=== PATIENT | female | born 1970 | race African-American/Black ===

== ENCOUNTER 2019-03-24 14:35 | Inpatient (IN) | payer SELFPAY ==
[2019-03-24 14:48] VITALS: BMI 43.5
--- NOTE | 2019-03-24 14:56 | PDOC ---
History of Present Illness - General Chief Complaint: Syncope/Near Syncope Stated Complaint: Nausea/Vomiting Time Seen by Provider: 03/24/19 14:54 Past History - Past Medical History Allergies/Adverse Reactions: Allergies Allergy/AdvReac Type Severity Reaction Status Date / Time No Known Allergies Allergy Verified 03/24/19 14:43 Home Medications: Ambulatory Orders Bupropion HCl [Bupropion Xl] 150 mg PO DAILY 03/24/19 Hydrochlorothiazide [Hctz -] 25 mg PO DAILY 03/24/19 Losartan Potassium 100 mg PO DAILY 03/24/19 Sulfamethoxazole/Trimethoprim [Bactrim Ds -] 1 tab PO BID 03/24/19 Sumatriptan Succinate 100 mg PO PRN 03/24/19 Venlafaxine HCl ER [Effexor Xr -] 150 mg PO DAILY 03/24/19 Anemia: Yes COPD: No HTN: Yes Psychiatric Problems: Yes (anxiety) Other medical history: Fibroids - Suicide/Smoking/Psychosocial Hx Smoking History: Never smoked Have you smoked in the past 12 months: No Information on smoking cessation initiated: No Hx Alcohol Use: No Drug/Substance Use Hx: No *Physical Exam - Vital Signs Last Vital Signs Temp Pulse Resp BP Pulse Ox 98.4 F 97 H 18 139/71 95 03/24/19 14:44 03/24/19 14:44 03/24/19 14:44 03/24/19 14:44 03/24/19 14:44 ED Treatment Course - LABORATORY CBC & Chemistry Diagram: 03/24/19 15:40 03/24/19 15:40 Medical Decision Making - Medical Decision Making HPI: 49 yo F with PMH of anemia, fibroids, HTN, migraines, herniated disc, anxiety, depression presenting after a syncopal episode. Patient was recently admitted to [facility] for pyelonephritis and was discharged one week ago on with an outpatient prescription for Bactrim which she has not yet finished. Patient presents today after suffering a syncopal episode. She was standing in the bathroom when she felt weak and dizzy and found herself on the ground. She yelled for her fiance who came to assist her. He planned to take her to the hospital but she was feeling unwell and decided to lay down for longer than he expected. The fiance decided to call EMS and the ambulance brought her to the ED for further evaluation. Patient reports weakness and dyspnea on exertion since she started a new job in December. Patient reports that she had a low hemoglobin of 5.6 while at [facility] but refused transfusion and was given one iron infusion before discharge. She is no longer a practicing [employer] but had refused transfusion for samaritan reasons. Patient was supposed to be scheduled for another iron infusion today. She has a history of anemia but had never been offered transfusion before last week. Endorses fever of 102 yesterday as well as chills. Reports that her urine appears orange. Last bowel movement was yesterday and was a normal formed brown stool without blood. No chest pain, dysuria, hematuria, or abdominal pain. PCP: none Neuro: Dr. Chan (in [place]) ROS: Constitutional: +fever, +chills HEENT: no throat pain, no dysphagia Cardiovascular: no chest pain, no palpitations Respiratory: no cough, no shortness of breath Gastrointestinal: no abdominal pain, +nausea, +vomiting, no diarrhea, no constipation Genitourinary: no dysuria, no hematuria Musculoskeletal: no myalgia, no arthralgia Skin: no rash, no itching Neurologic: no headache, no weakness PE: General: Awake, alert, and fully oriented, in no acute distress Head: No signs of trauma Eyes: EOMI, sclera anicteric ENT: Dry mucus membranes Neck: Normal ROM, supple Lungs: Lungs clear, Normal breath sounds Cardio: Regular rhythm, S1 and S2 present Abdomen: Soft, nontender. No guarding, no rebound, no masses. No CVA tenderness. Extremities: Normal range of motion, Distal pulses present, BLE tenderness upon palpation SKIN: Warm, Dry, normal turgor Neurologic: Cranial nerves II through XII intact. Normal speech, sensation, strength, coordination. Deferred gait exam Back: Tender to palpation in lumbar area, midline, no step-offs/deformities/ fluctuance; no overlying wound or lesion Rectal: The skin is without erythema or induration. No external hemorrhoids, fissures, skin tags, warts, or discharge. Sphincter tone normal. There are no masses palpated on digital exam. Stool is brown. ED Courses/MDM: DDX including but not limited to symptomatic anemia, vasovagal syncope, cardiogenic syncope, metabolic syncope, neurogenic syncope, postural syncope, UTI/Pyelonephritis Labs CT Head Ofirmev Fluids Zofran EKG: rate 90, QTc 425, NSR, isolated twi in lead III, no prior EKGs 03/24/19 14:56 CBC WBC 22.1 K/mm3 (4.0-10.0) H 03/24/19 15:40 RBC 3.89 M/mm3 (3.60-5.2) 03/24/19 15:40 Hgb 6.7 GM/dL (10.7-15.3) L* 03/24/19 15:40 Hct 22.8 % (32.4-45.2) L 03/24/19 15:40 MCV 58.6 fl (80-96) L 03/24/19 15:40 MCH 17.3 pg (25.7-33.7) L 03/24/19 15:40 MCHC 29.5 g/dl (32.0-36.0) L 03/24/19 15:40 RDW 23.2 % (11.6-15.6) H 03/24/19 15:40 Plt Count 595 K/MM3 (134-434) H 03/24/19 15:40 MPV 9.7 fl (7.5-11.1) 03/24/19 15:40 Absolute Neuts (auto) 12.6 K/mm3 (1.5-8.0) H 03/24/19 15:40 Neutrophils % 57.1 % (42.8-82.8) 03/24/19 15:40 Lymphocytes % 36.4 % (8-40) 03/24/19 15:40 Monocytes % 5.5 % (3.8-10.2) 03/24/19 15:40 Eosinophils % 0.8 % (0-4.5) 03/24/19 15:40 Basophils % 0.2 % (0-2.0) 03/24/19 15:40 Nucleated RBC % 0 % (0-0) 03/24/19 15:40 Leukocytosis. WBC=22.1 Anemia, Hgb=6.7 Electrolytes unremakable Normal BUN and Cr Tpn undetectable Patient at CT 03/24/19 17:09 Discussed at length the benefits and risks of blood transfusion for low hemoglobin. Patient amenable to blood transfusion at this time. Consent signed. CMP Sodium 136 mmol/L (136-145) 03/24/19 15:40 Potassium 4.9 mmol/L (3.5-5.1) 03/24/19 15:40 Chloride 105 mmol/L (98-107) 03/24/19 15:40 Carbon Dioxide 21 mmol/L (21-32) 03/24/19 15:40 Anion Gap 10 MMOL/L (8-16) 03/24/19 15:40 BUN 10.7 mg/dL (7-18) 03/24/19 15:40 Creatinine 1.1 mg/dL (0.55-1.3) 03/24/19 15:40 Est GFR (CKD-EPI)AfAm 69.24 03/24/19 15:40 Est GFR (CKD-EPI)NonAf 59.74 03/24/19 15:40 Random Glucose 85 mg/dL (74-106) 03/24/19 15:40 Calcium 8.8 mg/dL (8.5-10.1) 03/24/19 15:40 Total Bilirubin 4.8 mg/dL (0.2-1) H 03/24/19 15:40 AST 130 U/L (15-37) H 03/24/19 15:40 ALT 169 U/L (13-61) H 03/24/19 15:40 Alkaline Phosphatase 978 U/L (45-117) H 03/24/19 15:40 Troponin I < 0.02 ng/ml (0.00-0.05) 03/24/19 15:40 Total Protein 6.7 g/dl (6.4-8.2) 03/24/19 15:40 Albumin 2.6 g/dl (3.4-5.0) L 03/24/19 15:40 Tpn undetectable Electrolytes unremarkable TBili, AST, ALT, ALP elevated Unknown why patient has these abnormal lab values; abdomen is nontender. Patient still has her gallbladder. Decision made to obtain RUQ US to r/o gallbladder pathology Blood cultures, lipase ordered Pending UA. Patient is unable to give us a urine sample at this time. Zosyn ordered. FOBT negative No longer nauseous. Reporting less leg pain because she has been laying in bed. 03/24/19 18:39 CXR: "A single frontal portable projection of the chest at 4:42 PM is submitted. The heart size is within normal limits. The lung moreno are free of pulmonary infiltrates or pleural effusions. IMPRESSION: No acute disease. " CT Head: "Sequential axial images were obtained from the base of the skull to the vertex. There is no evidence of acute intracranial hemorrhage, mass lesions or infarctions. There is no evidence of fracture or acute bony pathology. IMPRESSION: Normal CT scan of the head with no evidence of acute intracranial pathology." 03/24/19 18:49 RUQ US: "Real time examination of the abdomen demonstrates the following: The gallbladder is somewhat contracted and thick-walled. It is free of calculi with no evidence of intra or extrahepatic biliary duct dilatation. The liver is normal in size. It is somewhat heterogeneous in texture with no intrahepatic masses seen. Hepatopedal flow is documented within the main portal vein. The pancreas is normal in size and texture with no pancreatic masses identified. There is no evidence of hydronephrosis or acute abnormalities of the right kidney. There is no evidence of AAA. The IVC is patent. IMPRESSION: Heterogeneous liver with no evidence of biliary ductal dilatation or acute pathology. " Plan for admission 03/24/19 20:[address] Drake who accepted patient for admission under Dr. Montana 03/24/19 20:23 UA with 1+ LE, +nitrite, 33 WBC, 8.1 bacteria *DC/Admit/Observation/Transfer Diagnosis at time of Disposition: Symptomatic anemia, Pyelonephritis - Discharge Dispostion Condition at time of disposition: Guarded Decision to Admit order: Yes - Referrals - Patient Instructions - Post Discharge Activity
[2019-03-24] MEDS ORDERED: SODIUM CHLORIDE 1,000 ML IV STA ×2 (15:34→18:56)
[2019-03-24] MEDS ORDERED: ACETAMINOPHEN 1000 MG/100 ML VIAL (NON FORMULARY) IVPB ONE (15:34)
[2019-03-24] MEDS ORDERED: ONDANSETRON 4 MG/2 ML VIAL IVPUSH ONE (15:34)
--- NOTE | 2019-03-24 15:53 | PDOC ---
Documentation entered by Wen Raygoza SCRIBE, acting as scribe for Jj Alcaraz MD. Jj Alcaraz MD: This documentation has been prepared by the Jaret rust Brenda, SCRIBE, under my direction and personally reviewed by me in its entirety. I confirm that the documentation accurately reflects all work, treatment, procedures, and medical decision making performed by me. Attending Attestation - Resident Resident Name: Leia Hood - ED Attending Attestation I have performed the following: I have examined & evaluated the patient, The case was reviewed & discussed with the resident, I agree w/resident's findings & plan, Exceptions are as noted - HPI HPI: 03/24/19 16:50 The patient is a 49 year old female (currently menopausal) , with a significant PMH of anemia, fibroid and anxiety, who presents to the emergency department with a syncopal episode. As per patient, she was in the bathroom this morning around 9:00am, at which time she began to feel weak and dizzy and then had a syncopal episode. She also endorses nausea with 1 episode of NBNB emesis. She also endorses feeling weak since December. As per patient, she was recently at [facility] for a UTI, and was found to have low hemoglobin but refused a blood transfusion due to christianity beliefs. The patient denies chest pain, shortness of breath. Denies fever, chills, diarrhea and constipation. Denies dysuria, frequency, urgency and hematuria. Denies any other symptoms. Allergies: NKA - Physicial Exam PE: 03/24/19 16:50 Vitals: Triage Vital signs reviewed General Appearance: no acute distress, well nourished well developed, Head: Atraumatic, normocephalic Eyes: Pupils equal reactive round, extraocular movement intact Neck: Supple;No Nuchal rigidity Chest Wall: Nontender Cardiac: Regular rate and rhythm, no murmurs, no rubs, no gallops, Lungs: Clear to auscultation bilateral, good air movement bilaterally, Extremities: Full range of motion to all extremities, no cyanosis, clubbing, or edema Skin: Warm and dry, no rashes or lesions, no petechiae Neuro: AOX3; Cranial Nerves 2-12 grossly intact, Strength intact to all extremities, Sensation intact to all extremities Psych: normal mood, normal affect - Medical Decision Making 03/24/19 16:05 History of Anemia recent treatment for pyelonephritis patient may require blood transfusion but has refused in the past secondary to christianity reasons Labs head CT pending Dr. Perez to follow up labs and reassess.
[2019-03-24] MEDS ORDERED: ONDANSETRON 4 MG/2 ML VIAL ONE (15:56)
[2019-03-24] MEDS ORDERED: ACETAMINOPHEN INJECTION 100 ML IVPB ONE (15:56)
--- NOTE | 2019-03-24 16:02 | EKG ---
Test Reason : Blood Pressure : / mmHG Vent. Rate : 090 BPM Atrial Rate : 090 BPM P-R Int : 134 ms QRS Dur : 082 ms QT Int : 348 ms P-R-T Axes : 026 008 009 degrees QTc Int : 425 ms NORMAL SINUS RHYTHM MINIMAL VOLTAGE CRITERIA FOR LVH, MAY BE NORMAL VARIANT CANNOT RULE OUT ANTERIOR INFARCT , AGE UNDETERMINED ABNORMAL ECG NO PREVIOUS ECGS AVAILABLE Confirmed by MEAGAN HASSAN MD ([id number]) on 03/24/2019 4:01:45 PM Referred By: Confirmed By:MEAGAN HASSAN MD
[2019-03-24 16:22] LABS: BASO % 0.2 % (0-2.0); EOS % 0.8 % (0-4.5); HEMATOCRIT 22.8 % (32.4-45.2); LYMPH % 36.4 % (8-40); MCHC 29.5 g/dl (32.0-36.0); MEAN CELL VOLUME 58.6 fl (80-96); MEAN PLT VOLUME 9.7 fl (7.5-11.1); MONO % 5.5 % (3.8-10.2); NEUT % 57.1 % (42.8-82.8); PLATELET COUNT 595 K/MM3 (134-434); RBC 3.89 M/mm3 (3.60-5.2); RDW 23.2 % (11.6-15.6); WHITE BLOOD COUNT 22.1 K/mm3 (4.0-10.0)
[2019-03-24 16:32] LABS: INR 1.52 (0.83-1.09)
[2019-03-24] MEDS ORDERED: DIPHTH,PERTUSS(ACELL),TET 0.5 ML DISP.SYRIN IM ONE ×2 (16:32→18:22)
[2019-03-24 16:35] LABS: ACTIVATED PTT 43.9 SECONDS (25.2-36.5); MCH 17.3 pg (25.7-33.7)
[2019-03-24 16:36] LABS: HEMOGLOBIN 6.7 GM/dL (10.7-15.3)
[2019-03-24 16:41] LABS: ALBUMIN 2.6 g/dl (3.4-5.0); ALK PHOS 978 U/L (45-117); ANION GAP 10 MMOL/L (8-16); BILIRUBIN,TOTAL 4.8 mg/dL (0.2-1); BLOOD UREA NITROGEN 10.7 mg/dL (7-18); CALCIUM 8.8 mg/dL (8.5-10.1); CHLORIDE 105 mmol/L (98-107); CO2 21 mmol/L (21-32); CREATININE 1.1 mg/dL (0.55-1.3); GLUCOSE,RANDOM 85 mg/dL (74-106); POTASSIUM 4.9 mmol/L (3.5-5.1); SGOT/AST 130 U/L (15-37); SGPT/ALT 169 U/L (13-61); SODIUM 136 mmol/L (136-145); TOT PROT 6.7 g/dl (6.4-8.2)
[2019-03-24] MEDS ORDERED: PIPERACILLIN/TAZOB 4.5 GM 4.5 GM in DEXTROSE 5%-WATER 100 ML IVPB ONE (17:47)
[2019-03-24] MEDS ORDERED: PIPERACILLIN/TAZOB 4.5 GM 4.5 GM/100 ML BAG IVPB ONE (18:22)
[2019-03-24 19:22] LABS: ANISOCYTOSIS 3+; MACROCYTOSIS 2+
[2019-03-24 19:23] LABS: PLATELET ESTIMATE INCREASED
[2019-03-24 20:23] LABS: EPI CELLS 12.9 /HPF (0-5/HPF); HYALINE CASTS 57 /lpf (0-8); PH,URINE 5.5 (5.0-8.0); URINE APPEARANCE CLOUDY; URINE BACTERIA 8.1 /hpf (NEGATIVE); URINE BILIRUBIN 3+ (NEGATIVE); URINE COLOR DK YELLOW; URINE GLUCOSE (UA) NEGATIVE (NEGATIVE); URINE KETONE TRACE (NEGATIVE); URINE LEUK ESTERASE 1+ (NEGATIVE); URINE NITRITE POSITIVE (NEGATIVE); URINE PROTEIN 1+ (NEGATIVE); URINE RBC 2 /hpf (0-4); URINE WBC 33 /hpf (0-5)
--- NOTE | 2019-03-24 21:00 | HP ---
CHIEF COMPLAINT: Syncope PCP: Dr. Salas (neuro) HISTORY OF PRESENT ILLNESS: 49 F with PMH significant for anemia, fibroids, HTN who presents today with an unwitnessed syncopal event in the morning. Patient recalls ambulating to the restroom but becoming lightheaded and weak, at which point she braced herself against the wall. She has no recall of what happened next, she became unconscious and then remembers waking up on the floor and sitting herself up and then calling her fiance to help her. Fiance was in a different room during the episode and did not come into the room until being called so there is no reliable measure of time for LOC. She did not endorse feeling dizzy, and did not have any symptoms of incontinence upon regaining consciousness. Denies any trauma to her head, but she did feel as though she landed on her left side and had some scrapes on her elbow. Patient endorses feeling weak in her legs and nausea today, had 1 episode of NBNB emesis in the morning. She also reports 1 episode of emesis on Thursday night, which was NBNB, and afterwards has had decreased oral intake, mostly consisting of small pieces of fruit and water. She does not have abdominal pain, diarrhea, dysuria, hematuria, or blood in the stool. Notably patient endorses feeling weak since recent discharge from [facility] after treatment for pyelonephritis, on Bactrim BID. Patient endorses taking her home meds as scheduled except for her blood pressure medications since she has not felt well recently. She endorses having recorded fevers at home ranging from 99-104. She endorses exertional dyspena after walking 1 block starting in December, currently she ambulates at home from room to room with some dyspnea and needs to hold onto the wall or side railings in order to stay balanced and not fall. She denies any numbness in her lower extremity. Denies any trauma with lacerations or bloodloss, hematochezia, hematuria, hemoptysis. ER course was notable for: (1)Chest X-Ray was completed which was clear. RUQ U/S was done which showed normal liver and no gallbladder pathology. Head CT showed no bleeds or acute pathology. 1 unit PRBC was given once CBC showed Hgb of 6.7 (2)U/A was done which showed 8.1 bacteria, 1+ leukocyte esterase, 3+ bilirubin, trace ketones. Zoysn 4.5 grams was given. (3)2L NS was given. Recent Travel: None PAST MEDICAL HISTORY: anemia, fibroids, HTN, migraines, herniated disc, anxiety , depression LMP: was 1 year ago. [employer] said she was premenopausal. 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 Works outside frequently but has not returned to work since [facility] admission. Is a Yazdanism but is amenable to blood transfusion today. Family History: HTN, Ulcers, anemia, breast cancer on both sides of family. COPD in father. Allergies No Known Allergies Allergy (Verified 03/24/19 14:43) HOME MEDICATIONS: Buproprion 150 mg QD HCTZ 25 mg QD Iron tablet 3x daily Losartan 100 mg QHS Bactrim BID venlafaxine 150 mg QDaily Sumatriptan 100 mg PRN REVIEW OF SYSTEMS In addition to above CONSTITUTIONAL: Subjective fever, generalized weakness, loss of appetite Absent: chills, diaphoresis, malaise, weight change HEENT: Absent: rhinorrhea, nasal congestion, throat pain, throat swelling, difficulty swallowing, mouth swelling, ear pain, eye pain, visual changes CARDIOVASCULAR: Lightheadedness Absent: chest pain, syncope, palpitations, irregular heart rate, peripheral edema RESPIRATORY: dyspnea with exertion Absent: cough, shortness of breath, orthopnea, wheezing, stridor, hemoptysis GASTROINTESTINAL:nausea, vomiting, Absent: abdominal pain, abdominal distension, diarrhea, constipation, melena, hematochezia GENITOURINARY: Absent: dysuria, frequency, urgency, hesitancy, hematuria, MUSCULOSKELETAL: Absent: myalgia, arthralgia, joint swelling, back pain, neck pain HEMATOLOGIC/IMMUNOLOGIC: Absent: easy bleeding, easy bruising, lymphadenopathy ENDOCRINE: Absent: unexplained weight gain, unexplained weight loss, heat intolerance, cold intolerance NEUROLOGIC: Absent: headache, dizziness, unsteady gait, seizure, mental status changes, bladder or bowel incontinence PSYCHIATRIC: Absent: anxiety, depression, suicidal or homicidal ideation, hallucinations. PHYSICAL EXAMINATION Vital Signs - 24 hr 03/24/19 03/24/19 03/24/19 14:44 18:00 19:34 Temperature 98.4 F Pulse Rate 97 H Pulse Rate [ 93 H Apical] Respiratory 18 16 Rate Blood Pressure 139/71 Blood Pressure 105/64 [Right] O2 Sat by Pulse 95 98 97 Oximetry (%) GENERAL: Awake, alert, and fully oriented, in no acute distress. HEAD: Normal with no signs of trauma. EYES: Pupils equal, round and reactive to light, extraocular movements intact, sclera anicteric, conjunctiva clear. No lid lag. EARS, NOSE, THROAT: Ears normal, nares patent, oropharynx clear without exudates. Moist mucous membranes. NECK: Normal range of motion, supple without lymphadenopathy, JVD, or masses. LUNGS: Breath sounds equal, clear to auscultation b/l No wheezes, and no crackles. No accessory muscle use. HEART: Regular rate and rhythm, normal S1 and S2 without murmur, rub or gallop. ABDOMEN: Soft, nontender, not distended, normoactive bowel sounds, no guarding, no rebound, no masses. MUSCULOSKELETAL: No CVA tenderness b/l UPPER EXTREMITIES: 2+ pulses, warm, well-perfused. No cyanosis. No clubbing. No peripheral edema. LOWER EXTREMITIES: 2+ pulses, warm, well-perfused. No calf tenderness. No peripheral edema. NEUROLOGICAL: Cranial nerves II-XII intact. Normal speech. Normal gait. SKIN: Warm, dry, normal turgor, no rashes or lesions noted, normal capillary refill. Laboratory Results - last 24 hr 03/24/19 03/24/19 03/24/19 15:40 15:40 15:40 WBC 22.1 H RBC 3.89 Hgb 6.7 L* Hct 22.8 L MCV 58.6 L MCH 17.3 L MCHC 29.5 L RDW 23.2 H Plt Count 595 H MPV 9.7 Absolute Neuts (auto) 12.6 H Neutrophils % 57.1 Neutrophils % (Manual) 80.0 Lymphocytes % 36.4 Lymphocytes % (Manual) 15.0 Monocytes % 5.5 Monocytes % (Manual) 5 Eosinophils % 0.8 Basophils % 0.2 Nucleated RBC % 0 Hypochromia 3+ Platelet Estimate Increased Platelet Comment No clumping noted Anisocytosis 3+ Microcytosis 1+ Macrocytosis 2+ PT with INR INR PTT (Actin FS) Sodium 136 Potassium 4.9 Chloride 105 Carbon Dioxide 21 Anion Gap 10 BUN 10.7 Creatinine 1.1 Est GFR (CKD-EPI)AfAm 69.24 Est GFR (CKD-EPI)NonAf 59.74 Random Glucose 85 Calcium 8.8 Total Bilirubin 4.8 H AST 130 H ALT 169 H Alkaline Phosphatase 978 H Troponin I < 0.02 Total Protein 6.7 Albumin 2.6 L Lipase Urine Color Urine Appearance Urine pH Ur Specific Haigler Urine Protein Urine Glucose (UA) Urine Ketones Urine Blood Urine Nitrite Urine Bilirubin Urine Urobilinogen Ur Leukocyte Esterase Urine WBC (Auto) Urine RBC (Auto) Urine Casts (Auto) U Epithel Cells (Auto) Urine Bacteria (Auto) Urine HCG, Qual Negative Stool Occult Blood Blood Type Antibody Screen Crossmatch 03/24/19 03/24/19 03/24/19 15:40 15:40 16:25 WBC RBC Hgb Hct MCV MCH MCHC RDW Plt Count MPV Absolute Neuts (auto) Neutrophils % Neutrophils % (Manual) Lymphocytes % Lymphocytes % (Manual) Monocytes % Monocytes % (Manual) Eosinophils % Basophils % Nucleated RBC % Hypochromia Platelet Estimate Platelet Comment Anisocytosis Microcytosis Macrocytosis PT with INR 18.00 H INR 1.52 H PTT (Actin FS) 43.9 H Sodium Potassium Chloride Carbon Dioxide Anion Gap BUN Creatinine Est GFR (CKD-EPI)AfAm Est GFR (CKD-EPI)NonAf Random Glucose Calcium Total Bilirubin AST ALT Alkaline Phosphatase Troponin I Total Protein Albumin Lipase Urine Color Urine Appearance Urine pH Ur Specific Haigler Urine Protein Urine Glucose (UA) Urine Ketones Urine Blood Urine Nitrite Urine Bilirubin Urine Urobilinogen Ur Leukocyte Esterase Urine WBC (Auto) Urine RBC (Auto) Urine Casts (Auto) U Epithel Cells (Auto) Urine Bacteria (Auto) Urine HCG, Qual Stool Occult Blood Negative Blood Type A POSITIVE Antibody Screen Negative Crossmatch See Detail 03/24/19 03/24/19 03/24/19 18:00 18:00 18:30 WBC RBC Hgb Hct MCV MCH MCHC RDW Plt Count MPV Absolute Neuts (auto) Neutrophils % Neutrophils % (Manual) Lymphocytes % Lymphocytes % (Manual) Monocytes % Monocytes % (Manual) Eosinophils % Basophils % Nucleated RBC % Hypochromia Platelet Estimate Platelet Comment Anisocytosis Microcytosis Macrocytosis PT with INR INR PTT (Actin FS) Sodium Potassium Chloride Carbon Dioxide Anion Gap BUN Creatinine Est GFR (CKD-EPI)AfAm Est GFR (CKD-EPI)NonAf Random Glucose Calcium Total Bilirubin AST ALT Alkaline Phosphatase Troponin I Total Protein Albumin Lipase 204 Urine Color Urine Appearance Urine pH Ur Specific Haigler Urine Protein Urine Glucose (UA) Urine Ketones Urine Blood Urine Nitrite Urine Bilirubin Urine Urobilinogen Ur Leukocyte Esterase Urine WBC (Auto) Urine RBC (Auto) Urine Casts (Auto) U Epithel Cells (Auto) Urine Bacteria (Auto) Urine HCG, Qual Stool Occult Blood Blood Type Cancelled A POSITIVE Antibody Screen Cancelled Crossmatch 03/24/19 19:41 WBC RBC Hgb Hct MCV MCH MCHC RDW Plt Count MPV Absolute Neuts (auto) Neutrophils % Neutrophils % (Manual) Lymphocytes % Lymphocytes % (Manual) Monocytes % Monocytes % (Manual) Eosinophils % Basophils % Nucleated RBC % Hypochromia Platelet Estimate Platelet Comment Anisocytosis Microcytosis Macrocytosis PT with INR INR PTT (Actin FS) Sodium Potassium Chloride Carbon Dioxide Anion Gap BUN Creatinine Est GFR (CKD-EPI)AfAm Est GFR (CKD-EPI)NonAf Random Glucose Calcium Total Bilirubin AST ALT Alkaline Phosphatase Troponin I Total Protein Albumin Lipase Urine Color Dk yellow Urine Appearance Cloudy Urine pH 5.5 Ur Specific Haigler 1.031 Urine Protein 1+ H Urine Glucose (UA) Negative Urine Ketones Trace H Urine Blood Negative Urine Nitrite Positive H Urine Bilirubin 3+ H Urine Urobilinogen 1.0 Ur Leukocyte Esterase 1+ H Urine WBC (Auto) 33 Urine RBC (Auto) 2 Urine Casts (Auto) 57 U Epithel Cells (Auto) 12.9 Urine Bacteria (Auto) 8.1 Urine HCG, Qual Stool Occult Blood Blood Type Antibody Screen Crossmatch ASSESSMENT/PLAN: 49 F with PMH of anemia, fibroids, HTN, migraines who presents today with syncope secondary to worsening anemia. Patient also presents with transaminitis and likely unresolved urinary tract infection. 1) Syncope secondary to anemia Patient claims anemia is chronic condition, but has never been told her Hgb / Hct levels. Is amenable to blood transfusion today. Anemia would best explain exertional dyspnea, weakness, and today's syncopal event. Emesis may be due to iron tablets she has started to take. -1 unit PRBC transfused, goal->7 -Follow up CBC @ 1:30AM -Anemia possibly caused by hx of fibroids, pelvic ultrasound ordered to evaluate -Orthostatic vitals to be done -Echo to rule out cardiogenic cause of syncope such as aortic stenosis -Anemia work up: ferritin, iron studies, red blood cell smear. 2)Leukocytosis, possibly due to unresolved UTI -Blood culture and urine culture pending -Zoysn 4.5 gm given -1 gram ceftriaxone QDaily -Follow CBC -NS @ 75 ml/hr 3)Transaminitis No baseline labs available to compare patient's elevated LFT's, Alkaline Phosphatase to. May be due to Bactrim, which has hepatotoxicity. Will hold patient's bactrim -Obtain Medical Records from [facility] admission -Hepatitis levels -Tylenol levels -Potential GI consult in AM pending records from [facility] 4) Hx of migraines -Sumatriptan 100 mg PO PRN 5)Hx of Nausea -Zofran PRN 4mg IV 6)Hx of Depression and anxiety Bupropion 150 mg PO Qdaily Venlafaxine 150 mg PO Qdaily F: NS @ 75 ml/hr E: Follow BMP N: Sodium Controlled Diet DVT prophylaxis: SCD's Dispo: Admit to medicine floors Problem List - Problem (1) Pyelonephritis Code(s): N12 - TUBULO-INTERSTITIAL NEPHRITIS, NOT SPCF ACUTE OR CHRONIC (2) Symptomatic anemia Code(s): D64.9 - ANEMIA, UNSPECIFIED Visit type - Emergency Visit Emergency Visit: Yes ED Registration Date: 03/24/19 Care time: The patient presented to the Emergency Department on the above date and was hospitalized for further evaluation of their emergent condition. - New Patient This patient is new to me today: Yes Date on this admission: 03/24/19 - Critical Care Critical Care patient: No ATTENDING PHYSICIAN STATEMENT I saw and evaluated the patient. I reviewed the resident's note and discussed the case with the resident. I agree with the resident's findings and plan as documented. SUBJECTIVE: OBJECTIVE: ASSESSMENT AND PLAN:
[2019-03-24] MEDS ORDERED: ONDANSETRON 4 MG/2 ML VIAL IVPUSH PRN (21:06)
--- NOTE | 2019-03-25 00:16 | PN ---
Teaching Attending Note Name of Resident: Odell Cortez ATTENDING PHYSICIAN STATEMENT I saw and evaluated the patient. chart, data, imaging reviewed. I reviewed the resident's note and discussed the case with the resident. I agree with the resident's findings and plan as documented. SUBJECTIVE: 49 year old female with a significant PMH of anemia, fibroids, anxiety, and migraines c/o unwitnessed syncope episode. Lasted a few seconds to minutes. Undergoing treatment for pylonephritis with tmp/smx. OBJECTIVE: Last Vital Signs Temp Pulse Resp BP Pulse Ox 99.0 F 85 19 98/62 97 03/24/19 21:45 03/24/19 21:45 03/24/19 21:45 03/24/19 21:45 03/24/19 21:45 gen- nad, nontoxic, obese heent- at, nc, scleral pallor cv -s1+s2+rrr chest - clear abd - obese, nontender ext- no pedal edema studies reviewed - head ct neg for acute insults ASSESSMENT AND PLAN: #Syncope- from underlying anemia - ekg nsr -transfuse prbc -bed rest -fall precautions -echo #Microcytic anemia- likely from underlying fibroids. Pt JW but willing to accept blood transfusion. -iron studies -ferritin -vit b12 level -transfuse blood , hgb goal >7mg/dl #Transaminitis acute liver injury vs chronic ?- possibly drug induced liver injury form tmp/smx. No evidence of cholestasis. -obtain baseline liver studies -tylenol level -etoh level -viral hepatis panel -urine tox -GI consult -avoid hepatotoxins - bactrim #Pyelonephritis -complete course with ceftriaxone dvt ppx -
[2019-03-25 00:42] LABS: HEMATOCRIT 23.7 % (32.4-45.2); MCHC 29.3 g/dl (32.0-36.0); MEAN CELL VOLUME 60.6 fl (80-96); MEAN PLT VOLUME 9.9 fl (7.5-11.1); PLATELET COUNT 607 K/MM3 (134-434); RBC 3.91 M/mm3 (3.60-5.2); RDW 24.9 % (11.6-15.6); WHITE BLOOD COUNT 18.3 K/mm3 (4.0-10.0)
[2019-03-25 01:10] LABS: MCH 17.8 pg (25.7-33.7)
[2019-03-25 01:13] LABS: IRON SERUM 28 ug/dL (50-175); TOTAL IRON BINDING CAPACITY 237 ug/dL (250-450)
[2019-03-25] MEDS ORDERED: PATIENT'S OWN MEDICATION (NON-FORMULARY) (Sumatriptan Succinate [Sumatriptan Succinate] 10 PO SCH (01:15)
[2019-03-25] MEDS: SUMAtriptan SUCCINATE 50 MG TABLET PO PRN ×2 (01:53→07:56)
[2019-03-25] MEDS: SODIUM CHLORIDE 1,000 ML IV SCH ×4 (01:54→20:54)
[2019-03-25] MEDS ORDERED: PT OWN MED DRAWER 7, Y5N ONE ×3 (02:07→08:50)
[2019-03-25 02:35] LABS: BASO % 0.4 % (0-2.0); EOS % 1.5 % (0-4.5); HEMATOCRIT 26.7 % (32.4-45.2); LYMPH % 52.3 % (8-40); MCHC 29.9 g/dl (32.0-36.0); MEAN CELL VOLUME 62.6 fl (80-96); MEAN PLT VOLUME 9.1 fl (7.5-11.1); MONO % 4.2 % (3.8-10.2); NEUT % 41.6 % (42.8-82.8); PLATELET COUNT 603 K/MM3 (134-434); RBC 4.26 M/mm3 (3.60-5.2); RDW 26.7 % (11.6-15.6); WHITE BLOOD COUNT 19.5 K/mm3 (4.0-10.0)
[2019-03-25 02:41] LABS: MCH 18.7 pg (25.7-33.7)
[2019-03-25 04:46] LABS: ANISOCYTOSIS 2+; PLATELET ESTIMATE INCREASED; TARGET CELLS 1+
[2019-03-25] MEDS ORDERED: ACETAMINOPHEN 325 MG TABLET (FP) PO PRN ×2 (08:00→15:28)
[2019-03-25 08:07] LABS: HEMATOCRIT 25.6 % (32.4-45.2); HEMOGLOBIN 7.7 GM/dL (10.7-15.3); MEAN CELL VOLUME 61.7 fl (80-96); MEAN PLT VOLUME 9.4 fl (7.5-11.1); PLATELET COUNT 641 K/MM3 (134-434); RBC 4.14 M/mm3 (3.60-5.2); RDW 26.8 % (11.6-15.6); WHITE BLOOD COUNT 20.4 K/mm3 (4.0-10.0)
[2019-03-25 08:14] LABS: INR 1.58 (0.83-1.09); PROTHROMBIN TIME (PATIENT) 18.7 SEC (9.7-13.0)
[2019-03-25 08:16] LABS: ALBUMIN 2.5 g/dl (3.4-5.0); BILIRUBIN,TOTAL 6.8 mg/dL (0.2-1); BLOOD UREA NITROGEN 9.6 mg/dL (7-18); CALCIUM 9.1 mg/dL (8.5-10.1); CREATININE 1.1 mg/dL (0.55-1.3); MAGNESIUM 2.4 mg/dL (1.8-2.4); TOT PROT 6.6 g/dl (6.4-8.2)
[2019-03-25 08:17] LABS: ACTIVATED PTT 38.7 SECONDS (25.2-36.5)
[2019-03-25 08:36] LABS: MCH 18.5 pg (25.7-33.7)
[2019-03-25] MEDS ORDERED: cefTRIAXone SODIUM 1 GM VIAL ONE (08:50)
[2019-03-25] MEDS ORDERED: DEXTROSE 5%-WATER - 50 ML IVPB ONE (08:51)
[2019-03-25 09:47] LABS: BILIRUBIN,DIRECT 5.9 mg/dL (0.0-0.2)
[2019-03-25] MEDS ORDERED: CEFTRIAXONE 1 GM in DEXTROSE 5%-WATER - 50 ML IVPB SCH (10:00)
[2019-03-25] MEDS ORDERED: HYDROCHLOROTHIAZIDE 25 MG TABLET (FP) PO SCH (10:00)
[2019-03-25] MEDS: VENLAFAXINE HCL 75 MG E.R. CAPSULES (FP) PO SCH (10:38)
[2019-03-25 11:17] LABS: ANISOCYTOSIS 2+; MACROCYTOSIS 0; OVALOCYTE 1+; PLATELET ESTIMATE INCREASED; TARGET CELLS 1+; TEAR DROP CELLS 1+
[2019-03-25] MEDS ORDERED: PIPERACILLIN/TAZOB 4.5 GM 4.5 GM in DEXTROSE 5%-WATER 100 ML IVPB ONE (15:20)
--- NOTE | 2019-03-25 15:33 | PN ---
Teaching Attending Note Name of Resident: Deepa Villalobos ATTENDING PHYSICIAN STATEMENT I saw and evaluated the patient. I reviewed the resident's note and discussed the case with the resident. I agree with the resident's findings and plan as documented. SUBJECTIVE: feels tiered, generalized aches. RAMOS earlier npw resolved. reports having Migraines and the RAMOS was NL. reports iron def anemia . on iron supp. she was diagnosed with anemia even before her first period. she has not had a period x 1 year. ramos sh/o fibroids no colonoscopy in past or EGD, no h/o GI bleed . no high risk sexual behaviour. ative with her fiance x 2 yrs. no h/o IV drug use of previous blood transfusion per her Hb was 5.5 in [facility]. Reports a murmur OBJECTIVE: NAD, looks ill. awake and oriented HEENT: dry MM, no facial droop. EOMI. icteric conjunctivae. jaundiced skin CV: RRR, 3/6 SM at LLSB and base . Lungs: CTAB Abd: soft, NT, ND ,NL BS. Rectal exam: done by resident. neuro: EOMI, round equal pupils , reactive to light , no neck rigidity, no facil droop. EOMi, strength 5/5 in upper extremities proximally and distally. has pain in LE and does not want t participate. sensation to light touch NL. reflexes 2+ biceps and triceps ASSESSMENT AND PLAN: 49 y/o lady with h/o chronic iron def anemia, fibroids, no h/o transfusion, anxiety , depression, migraines, recent hospitalization to [facility] with a diagnosis of pyelonephritis and bacteremia. She presented with syncope 1- Syncope: likely due to orthostasis and anemia . EKG reviewed. will repeat and repeat trop. echo . evaluate murmur 2- Sepsis: either due to urinary source or GI biliary source. - she reports being bacteremic in [facility] form Pyelonephritis. never became fever free after her dc a week ago. - LFTS abnormalities indicate mixed picture and could be due to bactrim use, but need to r/o cholangitis ( no RUQ pain though) - suspect patient is bacteremic - US reviewed - follow blood cx - MRCP - GI consult . resident will call GI - consult ID. case was d/w Dr. Cornell and recs to start cefepime and flagyl - R/o renal abscess 3- Microcytic anemia: chronic , she reports Hb of 5.5 in [facility] . did not receive transfusion as she refused. now agrees - all her sisters have anemia. No h/o GI bleed. No bleed x 1 yr. - check hb electropheresis - check LDH , Hapto - OB in stool negative - transfuse if Hb < 7 - iron studies can't be interpreted after blood transfusion 4- Transaminitis: could be due to bactrim x 8 days now. r/o cholangitis ( less likely as no RUQ tenderness, and no CBd dilation on US, but still does not r/o diagnosis). spesis might be contributing - MRCP. - hepatitis serology pending - Gi consult 5- Migraines. resolve dnow. 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 6- SCds for now .pendig above w/u Will obrain records form [facility].
[2019-03-25] MEDS ORDERED: CEFEPIME HCL/D5W 2 GM/50 ML BAG IVPB SCH (17:00)
[2019-03-25] MEDS ORDERED: ONDANSETRON 4 MG/2 ML VIAL IVPUSH ONE (17:28)
[2019-03-25] MEDS ORDERED: PROCHLORPERAZINE MALEATE 5 MG TABLET PO ONE (17:29)
--- NOTE | 2019-03-25 17:31 | CON.GI ---
Consult Consult Specialty:: GI Referred by:: Hospitalist Reason for Consultation:: Abnormal liver chemistries - History of Present Illness Chief Complaint: General malaise, weakness History of Present Illness: 49F admitted to [facility] 03/24 s/p syncope. She explains that she had recently been admitted to [facility] this past 03/13-03/17. She had initially been seen in their ER for evaluation of chills/fevers/body aches/headaches. She alludes to having blood work performed, being told of potential viral illness and sent home. She was then called by the ER to return to the hospital as she was noted to be bacteremic. She states being told of a urinary tract infection while admitted there and "something with her kidneys", was given IV Abx and discharged in Bactrim. She last took bactrim yesterday morning. Overall, she states feeling no better than during her admission at Health system if not worse. She feels weak. On admission, Hgb was 6.7, INR 1.52,AST: 130 ALT: 169 ALP 978 TB :4.8. This morning her bilirubin is 6.8 with ALP: 885. Abdominal US yesterday failed to reveal gallstones, dilated biliary tract or focal liver abnormalities. She denies personal or family history of liver disease, OTC medications aside from excedrein, herbal supplements, IVDA or change in her prior standing medications. She does not recall being told of abnormal liver studies while at [facility]. Her father had a history of thyroid disease. In terms of her anemia, she states of having been anemic "her whole life" and has been on iron intermittently for this. She has had episodes of nausea with vomiting yesterday. She denies abdominal pain, rectal bleeding, melena, change in bowel habits, change in stool caliber, pruritus, rashes. SHe was noted guaiac negative from stool specimen sent to lab. She has never had an upper endoscopy or colonoscopy. There is no family history of colorectal cancer or other GI malignancy. There is no family history of celiac disease. Some of her siblings have a history of anemia as well. She continues to have low grade temps. Reports from [facility] have not been obtained for review as of yet. 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 History of Recent Travel: No Home Medications - Allergies Allergies/Adverse Reactions: Allergies Allergy/AdvReac Type Severity Reaction Status Date / Time No Known Allergies Allergy Verified 03/24/19 14:43 - Home Medications Home Medications: Ambulatory Orders Bupropion HCl [Bupropion Xl] 150 mg PO DAILY 03/24/19 Hydrochlorothiazide [Hctz -] 25 mg PO DAILY 03/24/19 Losartan Potassium 100 mg PO DAILY 03/24/19 Sulfamethoxazole/Trimethoprim [Bactrim Ds -] 1 tab PO BID 03/24/19 Sumatriptan Succinate 100 mg PO PRN 03/24/19 Venlafaxine HCl ER [Effexor Xr -] 150 mg PO DAILY 03/24/19 Family Disease History - Family Disease History Family Disease History: Other: Father (: 68: COPD / respiratory issues), Mother (Alive: HTN), Brother (1), Sister (4) Other Family History: No children. Some family members with anemia / HTN. No family history of colorectal cancer or other GI malignancy Review of Systems - Review of Systems Constitutional: reports: Chills, Fever, Loss of Appetite, Weakness Cardiovascular: denies: Chest Pain Respiratory: denies: Cough, SOB Gastrointestinal: reports: Bloating, Nausea, Vomiting. denies: Abdominal Pain, Constipation, Diarrhea, Dysphagia, Indigestion, Melena, Rectal Bleeding, Vomiting Blood Genitourinary: denies: Burning, Discharge, Dysuria, Flank Pain Musculoskeletal: reports: Extremity Pain (bilateral LE), Joint Pain. denies: Back Pain Psychiatric: reports: Anxiety Physical Exam-GI Vital Signs: Vital Signs Temperature 98.8 F 03/25/19 14:06 Pulse Rate 81 03/25/19 14:06 Respiratory Rate 20 03/25/19 14:06 Blood Pressure 108/68 03/25/19 14:06 O2 Sat by Pulse Oximetry (%) 100 03/25/19 07:30 Constitutional: Yes: Calm Eyes: Yes: Sclera Icterus Cardiovascular: Yes: Regular Rate and Rhythm, Murmur (2/6 SIERRA at the RSB) Respiratory: Yes: CTA Bilaterally Gastrointestinal Inspection: No: Distention, Scars ...Auscultate: Yes: Normoactive Bowel Sounds ...Palpate: Yes: Soft. No: Hepatomegaly, Splenomegaly, Tenderness ...Percussion: No: Tympanitic Extremities: Yes: Other (TTP along bilateral LE) Edema: LLE: Trace, RLE: Trace Neurological: Yes: Alert, Oriented (x3). No: [facility]ix[facility] Labs: CBC, BMP 03/25/19 06:30 03/25/19 06:30 INR, PTT INR 1.58 (0.83-1.09) H 03/25/19 06:30 Laboratory Tests 03/25/19 00:15 Iron 28 L TIBC 237 L Iron Saturation 11 L Ferritin 215.0 Laboratory Tests 03/25/19 00:15 Hep A IgM Ab Confirm Pending Hepatitis A Ab Total Pending Hep Bs Antigen Pending Hep Bs Antibody Pending Hep B Core Total Ab Pending Hep B Core IgM Ab Pending Hepatitis Be Antibody Pending Hepatitis Be Antigen Pending Microbiology Blood culture x 2 and urine cx from 03/24/19 Pending Laboratory Tests 03/25/19 00:15 Acetaminophen < 2.0 L Imaging - Results Cat Scan: Image Reviewed (Not officially read as of yet: I reviewed images: ? enlarged heart, No obvious gross intrahepatic ductal dil., no inflammatory changes around gallbladder, ? enlarged right kidney with stranding around it.) Ultrasound: Report Reviewed Problem List - Problems (1) Abnormal liver function tests Assessment/Plan: Cholestatic liver injury pattern. Given that bactrim was recently intiated, suspect that this could be the offending agent leading to cholestatic hepatitis. With obstructive jaundice, I would expect some degree of biliary ductal dilatation with such marked elevations in ALP and bilirubin and associated RUQ pain in the setting of cholangitis. ? if the leukocytosis and fevers is coming from alternate source aside from biliary tract (pyelonephritis). Awaiting official CT scan results (as noted above no gross ductal dilatation noted on MRCP has been ordered and she is heading down shortly for the study Changed to clear liquid diet until further evaluation of biliary tract performed Hepatitis serologies are pending. I discontinued Acetaminophen. Avoid other hepatotoxic agents ID has been consulted this evening. Awaiting blood and urine cultures Monitor INR. I ordered the AM Labs (CBC/Hepatic panel/BMP/INR) Monitor mental status Low threshold to transfer patient to ICU for change in hemodynamics / mental status Code(s): R94.5 - ABNORMAL RESULTS OF LIVER FUNCTION STUDIES (2) Anemia Assessment/Plan: Likely mixed picture. low iron saturation however low TIBC as well. With significant microcytosis and chronic / familial history of anemia, ? thalassemia. ? myelosuppresion from sepsis / alternate etiology. ? component of hemolysis Consider heme evaluation / further work-up Ordered celiac panel EGD / Colonoscopy when acute issues have resolved Code(s): D64.9 - ANEMIA, UNSPECIFIED Qualifiers: Anemia type: unspecified type Qualified Code(s): D64.9 - Anemia, unspecified
[2019-03-25] MEDS ORDERED: CEFEPIME 2 GM in DEXTROSE 5%-WATER 100 ML IVPB SCH (18:00)
--- NOTE | 2019-03-25 19:06 | PN ---
Physical Exam: SUBJECTIVE: Patient seen and examined at bedside. Fever overnight given tylenol. OBJECTIVE: Vital Signs Period Temp Pulse Resp BP Sys/Delgado Pulse Ox Last 24 Hr 98.7 F-100.7 F 78-95 18-20 98-159/62-87 97-100 GENERAL: The patient is awake, alert and oriented, having slight headache. HEAD: Normal with no signs of trauma. NECK: supple. LUNGS: Breath sounds equal, clear to auscultation bilaterally, no wheezes, no crackles, no accessory muscle use. HEART: Regular rate and rhythm, S1, S2 without murmur, rub or gallop. ABDOMEN: Soft, nontender, nondistended, normoactive bowel sounds, no guarding, no rebound. EXTREMITIES: 2+ pulses, no edema. NEUROLOGICAL: Normal speech, gait not observed, 5/5 upper extremity motor exam , lower extremity 2/2 strength b/l due to weakness and pain since thursday. PSYCH: Normal mood, normal affect. SKIN: Warm, dry, normal turgor, no rashes or lesions noted Laboratory Results - last 24 hr 03/24/19 03/24/19 03/24/19 15:40 15:40 18:00 WBC RBC Hgb Hct MCV MCH MCHC RDW Plt Count MPV Absolute Neuts (auto) Total Counted Neutrophils % Neutrophils % (Manual) 80.0 Band Neutrophils % Lymphocytes % Lymphocytes % (Manual) 15.0 Monocytes % Monocytes % (Manual) 5 Eosinophils % Eosinophils % (Manual) Basophils % Basophils % (Manual) Myelocytes % (Man) Promyelocytes % (Man) Blast Cells % (Manual) Nucleated RBC % Metamyelocytes Hypochromia 3+ Platelet Estimate Increased Platelet Comment No clumping noted Polychromasia Poikilocytosis Anisocytosis 3+ Microcytosis 1+ Macrocytosis 2+ Spherocytes Target Cells Tear Drop Cells Ovalocytes Bill Cells Fragmented RBCs PT with INR INR PTT (Actin FS) Sodium Potassium Chloride Carbon Dioxide Anion Gap BUN Creatinine Est GFR (CKD-EPI)AfAm Est GFR (CKD-EPI)NonAf Random Glucose Calcium Magnesium Iron TIBC Iron Saturation Unsaturated IBC Ferritin Total Bilirubin Direct Bilirubin GGT AST ALT Alkaline Phosphatase Total Protein Albumin Lipase 204 Urine Color Urine Appearance Urine pH Ur Specific [place] Urine Protein Urine Glucose (UA) Urine Ketones Urine Blood Urine Nitrite Urine Bilirubin Urine Urobilinogen Ur Leukocyte Esterase Urine WBC (Auto) Urine RBC (Auto) Urine Casts (Auto) U Epithel Cells (Auto) Urine Bacteria (Auto) Acetaminophen Blood Type A POSITIVE Antibody Screen Negative Crossmatch See Detail 03/24/19 03/24/19 03/25/19 18:30 19:41 00:15 WBC RBC Hgb Hct MCV MCH MCHC RDW Plt Count MPV Absolute Neuts (auto) Total Counted Neutrophils % Neutrophils % (Manual) Band Neutrophils % Lymphocytes % Lymphocytes % (Manual) Monocytes % Monocytes % (Manual) Eosinophils % Eosinophils % (Manual) Basophils % Basophils % (Manual) Myelocytes % (Man) Promyelocytes % (Man) Blast Cells % (Manual) Nucleated RBC % Metamyelocytes Hypochromia Platelet Estimate Platelet Comment Polychromasia Poikilocytosis Anisocytosis Microcytosis Macrocytosis Spherocytes Target Cells Tear Drop Cells Ovalocytes Simon Cells Fragmented RBCs PT with INR INR PTT (Actin FS) Sodium Potassium Chloride Carbon Dioxide Anion Gap BUN Creatinine Est GFR (CKD-EPI)AfAm Est GFR (CKD-EPI)NonAf Random Glucose Calcium Magnesium Iron 28 L TIBC 237 L Iron Saturation 11 L Unsaturated IBC 209 Ferritin 215.0 Total Bilirubin Direct Bilirubin GGT AST ALT Alkaline Phosphatase Total Protein Albumin Lipase Urine Color Dk yellow Urine Appearance Cloudy Urine pH 5.5 Ur Specific [place] 1.031 Urine Protein 1+ H Urine Glucose (UA) Negative Urine Ketones Trace H Urine Blood Negative Urine Nitrite Positive H Urine Bilirubin 3+ H Urine Urobilinogen 1.0 Ur Leukocyte Esterase 1+ H Urine WBC (Auto) 33 Urine RBC (Auto) 2 Urine Casts (Auto) 57 U Epithel Cells (Auto) 12.9 Urine Bacteria (Auto) 8.1 Acetaminophen < 2.0 L Blood Type A POSITIVE Antibody Screen Crossmatch 03/25/19 03/25/19 03/25/19 00:15 00:15 02:06 WBC 18.3 H 19.5 H RBC 3.91 4.26 Hgb 7.0 L 8.0 L Hct 23.7 L 26.7 L MCV 60.6 L 62.6 L MCH 17.8 L 18.7 L MCHC 29.3 L 29.9 L RDW 24.9 H 26.7 H Plt Count 607 H 603 H MPV 9.9 9.1 Absolute Neuts (auto) 8.1 H Total Counted 100 Neutrophils % 41.6 L D Neutrophils % (Manual) 74.0 Band Neutrophils % 4.0 Lymphocytes % 52.3 H D Lymphocytes % (Manual) 10.0 D Monocytes % 4.2 Monocytes % (Manual) 10 D Eosinophils % 1.5 D Eosinophils % (Manual) 2.0 Basophils % 0.4 Basophils % (Manual) Myelocytes % (Man) Promyelocytes % (Man) Blast Cells % (Manual) Nucleated RBC % 0 Metamyelocytes Hypochromia 2+ Platelet Estimate Increased Platelet Comment No clumping noted Polychromasia 1+ Poikilocytosis Anisocytosis 2+ Microcytosis 2+ Macrocytosis Spherocytes Target Cells 1+ Tear Drop Cells Ovalocytes Simon Cells Fragmented RBCs PT with INR INR PTT (Actin FS) Sodium Potassium Chloride Carbon Dioxide Anion Gap BUN Creatinine Est GFR (CKD-EPI)AfAm Est GFR (CKD-EPI)NonAf Random Glucose Calcium Magnesium Iron TIBC Iron Saturation Unsaturated IBC Ferritin Total Bilirubin Direct Bilirubin GGT AST ALT Alkaline Phosphatase Total Protein Albumin Lipase Urine Color Urine Appearance Urine pH Ur Specific [place] Urine Protein Urine Glucose (UA) Urine Ketones Urine Blood Urine Nitrite Urine Bilirubin Urine Urobilinogen Ur Leukocyte Esterase Urine WBC (Auto) Urine RBC (Auto) Urine Casts (Auto) U Epithel Cells (Auto) Urine Bacteria (Auto) Acetaminophen Cancelled Blood Type Antibody Screen Crossmatch 03/25/19 03/25/19 03/25/19 06:30 06:30 06:30 WBC 20.4 H RBC 4.14 Hgb 7.7 L Hct 25.6 L MCV 61.7 L MCH 18.5 L MCHC 30.0 L RDW 26.8 H Plt Count 641 H MPV 9.4 Absolute Neuts (auto) Total Counted Neutrophils % No Result Required. Neutrophils % (Manual) 73.4 Band Neutrophils % 0.0 Lymphocytes % No Result Required. Lymphocytes % (Manual) 12.8 D Monocytes % Monocytes % (Manual) 4 Eosinophils % Eosinophils % (Manual) 4.2 D Basophils % Basophils % (Manual) 0.0 Myelocytes % (Man) 0 Promyelocytes % (Man) 0 Blast Cells % (Manual) 0 Nucleated RBC % 0 Metamyelocytes 0 Hypochromia 1+ Platelet Estimate Increased Platelet Comment Present Polychromasia 2+ Poikilocytosis 1+ Anisocytosis 2+ Microcytosis 1+ Macrocytosis 0 Spherocytes 1+ Target Cells 1+ Tear Drop Cells 1+ Ovalocytes 1+ Simon Cells 1+ Fragmented RBCs 1+ PT with INR 18.70 H INR 1.58 H PTT (Actin FS) 38.7 H Sodium 135 L Potassium 5.0 Chloride 103 Carbon Dioxide 24 Anion Gap 7 L BUN 9.6 Creatinine 1.1 Est GFR (CKD-EPI)AfAm 69.24 Est GFR (CKD-EPI)NonAf 59.74 Random Glucose 70 L Calcium 9.1 Magnesium 2.4 Iron TIBC Iron Saturation Unsaturated IBC Ferritin Total Bilirubin 6.8 H D Direct Bilirubin 5.9 H GGT 407 H AST 115 H ALT 144 H Alkaline Phosphatase 885 H Total Protein 6.6 Albumin 2.5 L Lipase Urine Color Urine Appearance Urine pH Ur Specific [place] Urine Protein Urine Glucose (UA) Urine Ketones Urine Blood Urine Nitrite Urine Bilirubin Urine Urobilinogen Ur Leukocyte Esterase Urine WBC (Auto) Urine RBC (Auto) Urine Casts (Auto) U Epithel Cells (Auto) Urine Bacteria (Auto) Acetaminophen Blood Type Antibody Screen Crossmatch Active Medications Generic Name Dose Route Start Last Admin Trade Name Freq PRN Reason Stop Dose Admin Bupropion HCl 150 mg 03/25/19 10:00 03/25/19 09:27 Wellbutrin Xl - PO 150 mg DAILY LUCERO Administration Metronidazole 500 mg in 100 mls @ 100 mls/hr 03/25/19 15:45 03/25/19 16:59 Flagyl 500mg Premixed Ivpb - IVPB Not Given Q8H-IV LUCERO Sodium Chloride 1,000 mls @ 125 mls/hr 03/25/19 15:58 03/25/19 16:56 Normal Saline - IV 125 mls/hr ASDIR LUCERO Administration Cefepime HCl 2 gm/ Dextrose 100 mls @ 200 mls/hr 03/26/19 10:00 IVPB Q8H-IV LUCERO Protocol Ondansetron HCl 4 mg 03/24/19 21:06 03/25/19 13:38 Zofran Injection IVPUSH 4 mg Q6H PRN Administration NAUSEA Sumatriptan Succinate 100 mg 03/25/19 01:06 03/25/19 07:56 Imitrex - PO 100 mg PRN PRN Administration HEADACHE Venlafaxine HCl 150 mg 03/25/19 10:00 03/25/19 10:38 Effexor Xr - PO 150 mg DAILY LUCERO Administration ASSESSMENT/PLAN: 49 y/o lady with h/o chronic iron def anemia, fibroids, no h/o transfusion, anxiety , depression, migraines, recent hospitalization to [facility] with a diagnosis of pyelonephritis and bacteremia. She presented with syncope #Syncope - likely due to orthostasis and anemia was 5.5 at [facility], 7.7 following transfusion. - will repeat cbc at 12am - EKG reviewed. - will repeat trop. - echo to evaluate murmur that pt mentioned to Dr Mcgregor #Sepsis either 2/2 to urinary source or GI biliary source. - she reports being bacteremic in [facility] form Pyelonephritis. never became fever free after her dc a week ago. - Elevated transaminases can be due to ascending cholangitis due to her jaundice , fever, (2/3 [place] triad, no RUQ pain), - does not have symptoms that fulfill [place] - could be due to bactrim use - suspect patient is bacteremic - US no acute pathology other than liver heterogeneity - follow blood cx's - MRCP should be done awaiting GI recs. Possible hepatitis panel - GI consult(digiorno) - consulted ID- Dr. Cornell recommends cefepime and flagyl for now. - R/o renal abscess #Microcytic anemia: - chronic - pt reports Hb of 5.5 in [facility] - did not receive transfusion since she refused but elected to obtain transfusion here - all her sisters have anemia. - No h/o GI bleed. - menopausal amenorrhea x 1 yr. Fibroids stable no bleeding. - check hb electropheresis to r/o thallesemias - check LDH , Haptoglobin - FOBT negative - transfuse if Hb < 7 - iron studies can't be interpreted after blood transfusion #Migraines. - resolved now - no signs of BUGGY LOADER infection. IVNS 125ml/hr monitor lytes regular diet DVT PPX: SCD's for now pending above w/u before starting any AC's. Visit type - Emergency Visit Emergency Visit: No - New Patient This patient is new to me today: Yes Date on this admission: 03/25/19 - Critical Care Critical Care patient: No - Discharge Referral Referred to [facility] No ATTENDING PHYSICIAN STATEMENT I saw and evaluated the patient. I reviewed the resident's note and discussed the case with the resident. I agree with the resident's findings and plan as documented. SUBJECTIVE: OBJECTIVE: ASSESSMENT AND PLAN:
[2019-03-26] MEDS ORDERED: PT OWN MED DRAWER 7, Y5N ONE ×2 (01:31→10:04)
[2019-03-26] MEDS: SUMAtriptan SUCCINATE 50 MG TABLET PO PRN ×2 (01:45→10:06)
[2019-03-26] MEDS: SODIUM CHLORIDE 1,000 ML IV SCH (06:18)
[2019-03-26 07:24] LABS: INR 1.6 (0.83-1.09)
[2019-03-26 07:32] LABS: HEMATOCRIT 23.2 % (32.4-45.2); MCHC 30.1 g/dl (32.0-36.0); MEAN CELL VOLUME 61.3 fl (80-96); MEAN PLT VOLUME 9.3 fl (7.5-11.1); PLATELET COUNT 631 K/MM3 (134-434); RBC 3.78 M/mm3 (3.60-5.2); RDW 26.6 % (11.6-15.6); WHITE BLOOD COUNT 18.4 K/mm3 (4.0-10.0)
[2019-03-26 07:40] LABS: ALBUMIN 2.2 g/dl (3.4-5.0); BILIRUBIN,DIRECT 5.9 mg/dL (0.0-0.2); BILIRUBIN,TOTAL 6.6 mg/dL (0.2-1); BLOOD UREA NITROGEN 6.9 mg/dL (7-18); CREATININE 0.8 mg/dL (0.55-1.3); POTASSIUM 4.7 mmol/L (3.5-5.1); TOT PROT 6.1 g/dl (6.4-8.2)
--- NOTE | 2019-03-26 08:40 | PN ---
Progress Note (short form) - Note Progress Note: Denies abdominal pain. Hungry. MRI reviewed, no evidence for biliary obstruction. Blood cultures negative. LFTs are roughly the same today as yesterday. Bilirubin and alk phos minimally improved today. 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 To quote for the [facility] Livertox database: "TMP-SMZ causes a characteristic idiosyncratic liver injury that has features of drug-allergy or hypersensitivityand that resembles the injury attributable to the sulfonamides. The typical onset is sudden development of fever and rash followed by jaundice within a few days or weeks of starting the medication. Eosinophilia or atypical lymphocytosis are also common. The pattern of injury is typically cholestatic or mixed and can be complicated and prolonged. As with other sulfonamides, TMP-SMZ has been linked to cases of hepatocellular injury that can be severe and lead to acute liver failure. In most recent case series, TMP-SMZ has ranked within the top 5 to 10 causes of drug induced, idiosyncratic fulminant hepatic failure. However, most cases resolve rapidly, usually within 2 to 4 weeks unless cholestasis is severe." Her LFTs, as mentioned, are no worse today: CMP Sodium 136 mmol/L (136-145) 03/26/19 05:30 Potassium 4.7 mmol/L (3.5-5.1) 03/26/19 05:30 Chloride 104 mmol/L (98-107) 03/26/19 05:30 Carbon Dioxide 25 mmol/L (21-32) 03/26/19 05:30 Anion Gap 7 MMOL/L (8-16) L 03/26/19 05:30 BUN 6.9 mg/dL (7-18) L 03/26/19 05:30 Creatinine 0.8 mg/dL (0.55-1.3) 03/26/19 05:30 Est GFR (CKD-EPI)AfAm 101.75 03/26/19 05:30 Est GFR (CKD-EPI)NonAf 87.79 03/26/19 05:30 Random Glucose 79 mg/dL (74-106) 03/26/19 05:30 Calcium 9.0 mg/dL (8.5-10.1) 03/26/19 05:30 Magnesium 2.4 mg/dL (1.8-2.4) 03/25/19 06:30 Iron 28 ug/dL (50-175) L 03/25/19 00:15 TIBC 237 ug/dL (250-450) L 03/25/19 00:15 Iron Saturation 11 % (17.5-39) L 03/25/19 00:15 Unsaturated IBC 209 ug/dL (200-275) 03/25/19 00:15 Ferritin 215.0 ng/ml (8-388) 03/25/19 00:15 Total Bilirubin 6.6 mg/dL (0.2-1) H 03/26/19 05:30 Direct Bilirubin 5.9 mg/dL (0.0-0.2) H 03/26/19 05:30 GGT 407 U/L (5-85) H 03/25/19 06:30 AST 150 U/L (15-37) H 03/26/19 05:30 ALT 124 U/L (13-61) H 03/26/19 05:30 Alkaline Phosphatase 784 U/L (45-117) H 03/26/19 05:30 Creatine Kinase 32 U/L (26-192) 03/25/19 19:20 Troponin I < 0.02 ng/ml (0.00-0.05) 03/25/19 19:20 Total Protein 6.1 g/dl (6.4-8.2) L 03/26/19 05:30 Albumin 2.2 g/dl (3.4-5.0) L 03/26/19 05:30 Lipase 204 U/L (73-393) 03/24/19 18:00 INR is 1.60. The acute viral hepatitis serologies are still pending. At this time I have taken the liberty of discontinuing her antibiotics, as the fever and leukocytosis are likely part and parcel of her drug-induced liver injury. I would not want to run the risk of another drug reaction superimposed on the one she already has. I have also ordered ANTONIO, anti-smooth muscle antibody, soluble liver antigens. If her HBV serologies come back negative for acute infection would consider a course of steroids.
[2019-03-26 08:45] LABS: MCH 18.4 pg (25.7-33.7)
[2019-03-26] MEDS ORDERED: CEFEPIME 2 GM in DEXTROSE 5%-WATER 100 ML IVPB SCH (10:00)
[2019-03-26] MEDS: VENLAFAXINE HCL 75 MG E.R. CAPSULES (FP) PO SCH (10:06)
[2019-03-26 12:12] LABS: ANISOCYTOSIS 2+; MACROCYTOSIS 0; OVALOCYTE 1+; PLATELET ESTIMATE INCREASED; TARGET CELLS 2+
--- NOTE | 2019-03-26 12:25 | PN ---
Teaching Attending Note Name of Resident: Rajesh Camacho ATTENDING PHYSICIAN STATEMENT I saw and evaluated the patient. I reviewed the resident's note and discussed the case with the resident. I agree with the resident's findings and plan as documented. SUBJECTIVE: No fever or chills last night. feels better . has a RAMOS. no change in vision . pain in legs . and aches in all her body . no N/V today . No abd pain OBJECTIVE: NAD, looks better today HEENT:MMM, icteric scleera, jaundiced skin CV: RRR, 3/6 SM at LLSB and base. Lungs: CTAB Abd: soft, NT, ND ,NL BS. Ext : no edema or erythema tenderness over calves ASSESSMENT AND PLAN: 49 y/o lady with h/o chronic iron def anemia, fibroids, no h/o transfusion, anxiety , depression, migraines, recent hospitalization to [facility] with a diagnosis of pyelonephritis and bacteremia. She presented with syncope 1- Syncope: no recurrence 2- Drug induced liver injury: no evidence of CBD dilation or stones. no concern for cholangitis any more. LFTS are stabe. patient is clinically better - Appreciate Dr. José input. - LFTs were normal in [facility] - cont to monitor LFTs and avoid hepatotoxics. - follow Hep B serology, if neg steroids to be given - follow ANTONIO , antismooth muscle Abs, and soluble liver Abs 3- Possible sepsis : due to pyelonephritis . CT reviewed. No abscess - Abx were stopped by GI. case d/w dr. Cornell, who will address. - still [facility] will [facility] 4- Symptomatic chronic microcytic anemia: - follow HB electropheresis to r/o thalassemia - LDh and hapto to r/o sepsis associate hemolysis ( less likely ) - EGD and colo when stable - repeat iron studies as out pt - HB in am 5- Migraines. 6- LE pain , likely due to acute illness. r/o Rhabdo - check CPK - US of legs as was hospitalized recently 7- SCds for now due to anemia . will try to call [facility] again today
--- NOTE | 2019-03-26 13:55 | CON.ID ---
Consult - Past Medical History [employer]: Yes: Migraine Cardio/Vascular: Yes: HTN ...LMP: 03/24/18 ...: No Psych: Yes: Anxiety - Past Surgical History Additional Surgical History: Skin graft age 17 - Alcohol/Substance Use Hx Alcohol Use: Yes (social) History of Substance Use: reports: None - Smoking History Smoking history: Never smoked Have you smoked in the past 12 months: No - Social History Usual Living Arrangement: With Significant Other (Engaged) ADL: Independent History of Recent Travel: No Home Medications - Allergies Allergies/Adverse Reactions: Allergies Allergy/AdvReac Type Severity Reaction Status Date / Time parekh Allergy Uncoded 03/26/19 12:56 - Home Medications Home Medications: Ambulatory Orders Bupropion HCl [Bupropion Xl] 150 mg PO DAILY 03/24/19 Hydrochlorothiazide [Hctz -] 25 mg PO DAILY 03/24/19 Losartan Potassium 100 mg PO DAILY 03/24/19 Sulfamethoxazole/Trimethoprim [Bactrim Ds -] 1 tab PO BID 03/24/19 Sumatriptan Succinate 100 mg PO PRN 03/24/19 Venlafaxine HCl ER [Effexor Xr -] 150 mg PO DAILY 03/24/19 Family Disease History - Family Disease History Family Disease History: Other: Father (: 68: COPD / respiratory issues), Mother (Alive: HTN), Brother (1), Sister (4) Other Family History: No children. Some family members with anemia / HTN. No family history of colorectal cancer or other GI malignancy Physical Exam Vital Signs: Vital Signs Temperature 98.5 F 03/26/19 06:49 Pulse Rate 92 H 03/26/19 06:49 Respiratory Rate 20 03/26/19 06:49 Blood Pressure 125/73 03/26/19 06:49 O2 Sat by Pulse Oximetry (%) 97 03/25/19 21:00 Labs: CBC, BMP 03/26/19 05:30 03/26/19 05:30
--- NOTE | 2019-03-26 18:32 | PN ---
Physical Exam: SUBJECTIVE: Patient seen and examined at bedside this AM. Pt not in any distress. Pt had a slight headache last night, was given nothing. OBJECTIVE: Vital Signs Period Temp Pulse Resp BP Sys/Delgado Pulse Ox Last 24 Hr 98.4 F-98.6 F 86-92 18-20 111-138/48-73 97-97 GENERAL: The patient is awake, alert, and fully oriented, in no acute distress. HEAD: Normal with no signs of trauma. NECK: supple. LUNGS: Breath sounds equal, clear to auscultation bilaterally, no wheezes, no crackles, no accessory muscle use. HEART: Regular rate and rhythm, S1, S2 without murmur, rub or gallop. ABDOMEN: Soft, nontender, nondistended, normoactive bowel sounds, no guarding, no rebound. EXTREMITIES: 2+ pulses, weakness b/l but able to ambulate, 2/5 b/l on motor exam , sensation intact but pt can ambulate with assistance, trace edema. NEUROLOGICAL: Cranial nerves II through XII grossly intact. Normal speech, gait not observed. PSYCH: Normal mood, normal affect. SKIN: Warm, dry, no rashes or lesions noted Laboratory Results - last 24 hr 03/25/19 03/25/19 03/26/19 19:20 19:20 05:30 WBC RBC Hgb Hct MCV MCH MCHC RDW Plt Count MPV Absolute Neuts (auto) Neutrophils % Neutrophils % (Manual) Band Neutrophils % Lymphocytes % Lymphocytes % (Manual) Monocytes % (Manual) Eosinophils % (Manual) Basophils % (Manual) Myelocytes % (Man) Promyelocytes % (Man) Blast Cells % (Manual) Nucleated RBC % Metamyelocytes Hypochromia Platelet Estimate Polychromasia Poikilocytosis Anisocytosis Microcytosis Macrocytosis Target Cells Ovalocytes PT with INR 19.00 H INR 1.60 H Sodium Potassium Chloride Carbon Dioxide Anion Gap BUN Creatinine Est GFR (CKD-EPI)AfAm Est GFR (CKD-EPI)NonAf Random Glucose Calcium Total Bilirubin Direct Bilirubin AST ALT Alkaline Phosphatase LD Total Creatine Kinase 32 Cancelled Troponin I < 0.02 Total Protein Albumin 03/26/19 03/26/19 05:30 05:30 WBC 18.4 H RBC 3.78 Hgb 7.0 L Hct 23.2 L MCV 61.3 L MCH 18.4 L MCHC 30.1 L RDW 26.6 H Plt Count 631 H MPV 9.3 Absolute Neuts (auto) 15.3 H Neutrophils % No Result Required. Neutrophils % (Manual) 86.0 H Band Neutrophils % 1.0 Lymphocytes % No Result Required. Lymphocytes % (Manual) 6.0 L D Monocytes % (Manual) 1 L Eosinophils % (Manual) 5.0 H Basophils % (Manual) 0.0 Myelocytes % (Man) 0 Promyelocytes % (Man) 0 Blast Cells % (Manual) 0 Nucleated RBC % 0 Metamyelocytes 0 Hypochromia 1+ Platelet Estimate Increased Polychromasia 0 Poikilocytosis 0 Anisocytosis 2+ Microcytosis 2+ Macrocytosis 0 Target Cells 2+ Ovalocytes 1+ PT with INR INR Sodium 136 Potassium 4.7 Chloride 104 Carbon Dioxide 25 Anion Gap 7 L BUN 6.9 L Creatinine 0.8 Est GFR (CKD-EPI)AfAm 101.75 Est GFR (CKD-EPI)NonAf 87.79 Random Glucose 79 Calcium 9.0 Total Bilirubin 6.6 H Direct Bilirubin 5.9 H AST 150 H ALT 124 H Alkaline Phosphatase 784 H LD Total 295 H Creatine Kinase Troponin I Total Protein 6.1 L Albumin 2.2 L Active Medications Generic Name Dose Route Start Last Admin Trade Name Freq PRN Reason Stop Dose Admin Bupropion HCl 150 mg 03/25/19 10:00 03/26/19 10:06 Wellbutrin Xl - PO 150 mg DAILY LUCERO Administration Sumatriptan Succinate 100 mg 03/25/19 01:06 03/26/19 10:06 Imitrex - PO 100 mg PRN PRN Administration HEADACHE Venlafaxine HCl 150 mg 03/25/19 10:00 03/26/19 10:06 Effexor Xr - PO 150 mg DAILY LUCERO Administration ASSESSMENT/PLAN: 49 y/o lady with h/o chronic iron def anemia, fibroids, no h/o transfusion, anxiety , depression, migraines, recent hospitalization to [facility] with a diagnosis of pyelonephritis and bacteremia. She presented with syncope #Syncope - likely due to orthostasis - EKG reviewed. -trops negative. #Sepsis either 2/2 to urinary source or GI biliary source. - spoke to [facility] and was told her UA Cx did not show any sensitivity to meds, insignificant amount of growth, mixed bacteria, and positive B.C. showing E coli w sensitivity to rocephin and bactrim but more so to bactrim which is presumably why they sent her home on bactrim. - Awaiting more labs from [facility] via fax by thursday potentially. 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 Awaiting Hep Panel. - may use steroids if HBV comes back negative as per Dr. Sprague. - GI consult(digiorno) - consulted ID- Dr. Cornell recommends no abx at this time due to elevated LFT's potentially abx induced. - R/o renal abscess #Microcytic anemia: - chronic - all her sisters have anemia. - No h/o GI bleed, needs EGD,Colonoscopy as o/p when pt stable (digiornio) - Fibroids stable no bleeding. - check hb electropheresis to r/o thallesemias - check LDH , Haptoglobin - FOBT negative - transfuse if Hb < 7, currently Hb 7. Dr. sprague does not believe she needs transfususion bc pt remains asymptomatic and its chronic anemia with no signs of bleeding. will continue to monitor. #Migraines. - resolved now - no signs of [employer] ASSISTANT infection. no fluids indicated at this time monitor lytes,Hb regular diet DVT PPX: SCD's for now pending above w/u before starting any AC's. Visit type - Emergency Visit Emergency Visit: No - New Patient This patient is new to me today: No - Critical Care Critical Care patient: No - Discharge Referral Referred to [facility] No ATTENDING PHYSICIAN STATEMENT I saw and evaluated the patient. I reviewed the resident's note and discussed the case with the resident. I agree with the resident's findings and plan as documented. SUBJECTIVE: OBJECTIVE: ASSESSMENT AND PLAN:
[2019-03-26 20:08] LABS: HEP B CORE AB, TOT Negative (Negative)
[2019-03-27 08:20] LABS: BASO % 0.6 % (0-2.0); EOS % 2.3 % (0-4.5); HEMATOCRIT 21.7 % (32.4-45.2); LYMPH % 48.4 % (8-40); MCHC 30.4 g/dl (32.0-36.0); MEAN CELL VOLUME 61.7 fl (80-96); MEAN PLT VOLUME 9.2 fl (7.5-11.1); MONO % 4.7 % (3.8-10.2); PLATELET COUNT 669 K/MM3 (134-434); RBC 3.52 M/mm3 (3.60-5.2); RDW 26.1 % (11.6-15.6); WHITE BLOOD COUNT 13.4 K/mm3 (4.0-10.0)
[2019-03-27 08:37] LABS: BILIRUBIN,DIRECT 5.9 mg/dL (0.0-0.2); BILIRUBIN,TOTAL 6.2 mg/dL (0.2-1); TOT PROT 5.7 g/dl (6.4-8.2)
[2019-03-27 08:40] LABS: MCH 18.8 pg (25.7-33.7)
[2019-03-27 08:43] LABS: HEMOGLOBIN 6.6 GM/dL (10.7-15.3)
--- NOTE | 2019-03-27 09:35 | PN ---
Progress Note (short form) - Note Progress Note: Denies abdominal pain. LFTs are slightly better; Hgb down to 6.2. Patient denies any bleeding, indeed, has not moved her bowels today or yesterday. The progressive anemia raises the possibility of hemolysis, and the combination of hemolytic anemia, acute liver failure, and psychiatric issues (in her case, depression) raises the possibility of Arsh disease. It is also possible that the anemia and liver disease are not connected, or that the anemia is part and parcel of her allergic reaction to Bactrim. Without doubt she is iron deficient. Current plans: 1) repeat CBC today. Retic count, LDH, haptoglobin ordered as well to document hemolysis. 2) EGD scheduled for tomorrow; consent obtained. 3) I have ordered serum copper and 24-hr urine copper. Ceruloplasmin unlikely to be useful as it is elevated in acute liver injury. 4) If anemia is shown to be from hemolysis would recommend ophthalmology consult for slit lamp exam to look for Leslie-Humberto rings.
--- NOTE | 2019-03-27 10:42 | PN ---
Progress Note, Physician History of Present Illness: weakness no complaints bilirubin down slightly h and h down - Current Medication List Current Medications: Active Medications Bupropion HCl (Wellbutrin Xl -) 150 mg PO DAILY [facility] Last Admin: 03/26/19 10:06 Dose: 150 mg Sumatriptan Succinate (Imitrex -) 100 mg PO PRN PRN PRN Reason: HEADACHE Last Admin: 03/26/19 10:06 Dose: 100 mg Venlafaxine HCl (Effexor Xr -) 150 mg PO DAILY [facility] Last Admin: 03/26/19 10:06 Dose: 150 mg - Objective Vital Signs: Vital Signs Temperature 98.1 F 03/27/19 06:00 Pulse Rate 81 03/27/19 06:00 Respiratory Rate 18 03/27/19 06:00 Blood Pressure 138/77 03/27/19 06:00 O2 Sat by Pulse Oximetry (%) 96 03/26/19 21:00 Constitutional: Yes: No Distress, Calm, Obese Neck: Yes: Supple, Trachea Midline Cardiovascular: Yes: Regular Rate and Rhythm Respiratory: Yes: Regular, CTA Bilaterally Gastrointestinal: Yes: Normal Bowel Sounds, Soft Musculoskeletal: Yes: WNL Extremities: Yes: WNL Neurological: Yes: Alert, Oriented Psychiatric: Yes: Alert, Oriented Labs: CBC, BMP 03/27/19 06:30 03/26/19 05:30 INR, PTT INR 1.60 (0.83-1.09) H 03/26/19 05:30 Assessment/Plan 49 y/o lady with h/o chronic iron def anemia, fibroids, no h/o transfusion, anxiety , depression, migraines, recent hospitalization to [facility] with a diagnosis of pyelonephritis and bacteremia. She presented with syncope her findings are probably due to bactrim has no symptms of nfection at this time h and h dropping plan continue to monitor without abx transfusion gi on case rest as per the team
--- NOTE | 2019-03-27 10:46 | EKG ---
Test Reason : Blood Pressure : / mmHG Vent. Rate : 085 BPM Atrial Rate : 085 BPM P-R Int : 154 ms QRS Dur : 082 ms QT Int : 352 ms P-R-T Axes : 048 018 034 degrees QTc Int : 418 ms NORMAL SINUS RHYTHM NORMAL ECG WHEN COMPARED WITH ECG OF 24-MAR-2019 14:38, ST ELEVATION NOW PRESENT IN ANTERIOR LEADS T WAVE AMPLITUDE HAS INCREASED IN ANTERIOR LEADS Confirmed by ESTELLE ARORA MD ([id number]) on 03/27/2019 10:46:22 AM Referred By: MODESTO ESQUIVEL Confirmed By:ESTELLE ARORA MD
[2019-03-27 11:04] LABS: HEMATOCRIT 23.3 % (32.4-45.2); MCHC 29.8 g/dl (32.0-36.0); MEAN CELL VOLUME 61.7 fl (80-96); MEAN PLT VOLUME 8.8 fl (7.5-11.1); PLATELET COUNT 679 K/MM3 (134-434); RBC 3.77 M/mm3 (3.60-5.2); WHITE BLOOD COUNT 13.4 K/mm3 (4.0-10.0)
[2019-03-27] MEDS ORDERED: PT OWN MED DRAWER 7, Y5N ONE (11:05)
[2019-03-27] MEDS: VENLAFAXINE HCL 75 MG E.R. CAPSULES (FP) PO SCH (11:10)
[2019-03-27 11:24] LABS: MCH 18.4 pg (25.7-33.7)
[2019-03-27 12:06] LABS: ANISOCYTOSIS 2+; MACROCYTOSIS 0; OVALOCYTE 1+; PLATELET ESTIMATE INCREASED; TARGET CELLS 2+
[2019-03-27] MEDS ORDERED: DOCUSATE SODIUM 100 MG CAPSULE (FP) PO PRN (14:46)
--- NOTE | 2019-03-27 14:46 | PN ---
Progress Note (short form) - Note Progress Note: Subjective: no fever or chils. feels better . has no abd pain . waked to bathroom on her own Objective: Vital Signs: Last Vital Signs Temp Pulse Resp BP Pulse Ox 98 F 90 20 139/88 96 03/27/19 13:26 03/27/19 13:26 03/27/19 13:26 03/27/19 13:26 03/26/19 21:00 Laboratory Results - last 24 hr 03/25/19 03/26/19 03/27/19 00:15 05:30 06:30 WBC 13.4 H RBC 3.52 L Hgb 6.6 L* Hct 21.7 L MCV 61.7 L MCH 18.8 L MCHC 30.4 L RDW 26.1 H Plt Count 669 H MPV 9.2 Absolute Neuts (auto) 5.9 Neutrophils % 44.0 Neutrophils % (Manual) 67.7 Band Neutrophils % 0.0 Lymphocytes % 48.4 H Lymphocytes % (Manual) 11.1 D Monocytes % 4.7 Monocytes % (Manual) 12 H D Eosinophils % 2.3 Eosinophils % (Manual) 8.1 H Basophils % 0.6 Basophils % (Manual) 0.0 Myelocytes % (Man) 1 D Promyelocytes % (Man) 0 Blast Cells % (Manual) 0 Nucleated RBC % 0 Metamyelocytes 0 Hypochromia 1+ Platelet Estimate Increased Polychromasia 2+ Poikilocytosis 0 Anisocytosis 2+ Microcytosis 2+ Macrocytosis 0 Target Cells 2+ Ovalocytes 1+ Retic Count 1.80 H Haptoglobin 296 H Total Bilirubin Direct Bilirubin AST ALT Alkaline Phosphatase LD Total Total Protein Albumin Hep A IgM Ab Confirm Negative Hepatitis A Ab Total Negative Hep Bs Antigen Negative Hep Bs Antibody Non reactive Hep B Core Total Ab Negative Hep B Core IgM Ab Negative Hepatitis Be Antibody Negative Hepatitis Be Antigen Negative 03/27/19 03/27/19 06:39 10:54 WBC 13.4 H RBC 3.77 Hgb 7.0 L Hct 23.3 L MCV 61.7 L MCH 18.4 L MCHC 29.8 L RDW 27.0 H Plt Count 679 H MPV 8.8 Absolute Neuts (auto) Neutrophils % Neutrophils % (Manual) Band Neutrophils % Lymphocytes % Lymphocytes % (Manual) Monocytes % Monocytes % (Manual) Eosinophils % Eosinophils % (Manual) Basophils % Basophils % (Manual) Myelocytes % (Man) Promyelocytes % (Man) Blast Cells % (Manual) Nucleated RBC % Metamyelocytes Hypochromia Platelet Estimate Polychromasia Poikilocytosis Anisocytosis Microcytosis Macrocytosis Target Cells Ovalocytes Retic Count Haptoglobin Total Bilirubin 6.2 H Direct Bilirubin 5.9 H AST 230 H ALT 137 H Alkaline Phosphatase 776 H LD Total 267 H Total Protein 5.7 L Albumin 2.0 L Hep A IgM Ab Confirm Hepatitis A Ab Total Hep Bs Antigen Hep Bs Antibody Hep B Core Total Ab Hep B Core IgM Ab Hepatitis Be Antibody Hepatitis Be Antigen Physical Exam: NAD HEENT:MMM, icteric scleera, jaundiced skin CV: RRR, 3/6 SM at LLSB and base. Lungs: CTAB Abd: soft, NT, ND ,NL BS. Ext : no edema or erythema tenderness over calves ASSESSMENT AND PLAN: 49 y/o lady with h/o chronic iron def anemia, fibroids, no h/o transfusion, anxiety , depression, migraines, recent hospitalization to [facility] with a diagnosis of pyelonephritis and bacteremia. She presented with syncope 1- Syncope: no recurrence 2- Drug induced liver injury: - Appreciate Dr. José input. - LFTs were normal in [facility] . LFTS stable today . - Hep B serology Neg - If LFTS cont to increase despite holding the offending medication, then steroids might be indicated - follow ANTONIO , antismooth muscle Abs, and soluble liver Abs - no evidence of hemolysis - Arsh's testing inprogress 3- h/o pyelonephritis - [facility] called . bacteremia with E coli. sensitive to ceftriaxone and bactrim. urine cx was contaminant. awiating the records to be faxed no signs of sepsis now off Abx d/w Dr. Cornell 4- Symptomatic chronic microcytic anemia: stable HB here - follow HB electropheresis to r/o thalassemia - LDh and hapto do not suggest hemolysis - EGD and colo per GI - repeat iron studies as out pt - HB in am 5- Migraines. resolved 6- LE pain , likely due to acute illness.no rhabdo and no DVT 7- SCds for now due to anemia . HLOC Visit type - Emergency Visit Emergency Visit: Yes ED Registration Date: 03/24/19 Care time: The patient presented to the Emergency Department on the above date and was hospitalized for further evaluation of their emergent condition. - New Patient This patient is new to me today: No - Critical Care Critical Care patient: No
[2019-03-27] MEDS ORDERED: POLYETHYLENE GLYCOL 3350 119 GM BTL PO PRN (14:47)
[2019-03-27] MEDS ORDERED: POLYETHYLENE GLYCOL 3350 119 GM BTL PO ONE (14:47)
[2019-03-28 07:44] LABS: HEMATOCRIT 22.6 % (32.4-45.2); MCHC 30.8 g/dl (32.0-36.0); MEAN CELL VOLUME 62.1 fl (80-96); MEAN PLT VOLUME 8.7 fl (7.5-11.1); PLATELET COUNT 746 K/MM3 (134-434); RBC 3.64 M/mm3 (3.60-5.2); RDW 25.5 % (11.6-15.6); WHITE BLOOD COUNT 10.8 K/mm3 (4.0-10.0)
[2019-03-28 08:01] LABS: BILIRUBIN,DIRECT 5.6 mg/dL (0.0-0.2); BILIRUBIN,TOTAL 6.2 mg/dL (0.2-1)
[2019-03-28 08:07] LABS: MCH 19.1 pg (25.7-33.7)
--- NOTE | 2019-03-28 09:21 | PN ---
Progress Note, Physician History of Present Illness: clinically patient is stable lfts still going up - Current Medication List Current Medications: Active Medications Bupropion HCl (Wellbutrin Xl -) 150 mg PO DAILY [facility] Last Admin: 03/27/19 11:10 Dose: 150 mg Docusate Sodium (Colace -) 100 mg PO BID PRN PRN Reason: CONSTIPATION Polyethylene Glycol (Miralax (For Daily Use) -) 17 gm PO DAILY PRN PRN Reason: CONSTIPATION Sumatriptan Succinate (Imitrex -) 100 mg PO PRN PRN PRN Reason: HEADACHE Last Admin: 03/26/19 10:06 Dose: 100 mg Venlafaxine HCl (Effexor Xr -) 150 mg PO DAILY [facility] Last Admin: 03/27/19 11:10 Dose: 150 mg - Objective Vital Signs: Vital Signs Temperature 97.6 F 03/28/19 08:41 Pulse Rate 80 03/28/19 08:41 Respiratory Rate 18 03/28/19 08:41 Blood Pressure 106/66 03/28/19 08:41 O2 Sat by Pulse Oximetry (%) 96 03/26/19 21:00 Constitutional: Yes: No Distress, Calm Cardiovascular: Yes: S1, S2 Respiratory: Yes: Regular, CTA Bilaterally Gastrointestinal: Yes: Normal Bowel Sounds, Soft Musculoskeletal: Yes: WNL Extremities: Yes: WNL Neurological: Yes: Alert, Oriented Psychiatric: Yes: Alert, Oriented Labs: CBC, BMP 03/28/19 07:00 03/26/19 05:30 INR, PTT INR 1.60 (0.83-1.09) H 03/26/19 05:30 Assessment/Plan 49 y/o lady with h/o chronic iron def anemia, fibroids, no h/o transfusion, anxiety , depression, migraines, recent hospitalization to [facility] with a diagnosis of pyelonephritis and bacteremia. She presented with syncope her findings are probably due to bactrim has no symptms of nfection at this time h and h dropping plan continue to monitor without abx transfusion gi on case for endoscopy today
[2019-03-28] MEDS: VENLAFAXINE HCL 75 MG E.R. CAPSULES (FP) PO SCH (10:11)
[2019-03-28 10:41] LABS: ANISOCYTOSIS 2+; MACROCYTOSIS 0; OVALOCYTE 2+; PLATELET ESTIMATE INCREASED; TARGET CELLS 2+
--- NOTE | 2019-03-28 12:22 | PN ---
Progress Note (short form) - Note Progress Note: Brief GI note EGD performed today revealing mild antral erythema and small hiatal hernia otherwise unremarkable. Biospies taken r/o H pylori and celiac disease. See scanned report for complete details. Recommendations: -Follow up pathology results -Resume previous diet -Continue to closely monitor LFT trend -Repeat labs and coags ordered for am -Follow up autoimmune serologies/markers and evaluation for wilsons disease -GI team to follow
--- NOTE | 2019-03-28 15:24 | PN ---
Teaching Attending Note Name of Resident: Rajesh Camacho ATTENDING PHYSICIAN STATEMENT I saw and evaluated the patient. I reviewed the resident's note and discussed the case with the resident. I agree with the resident's findings and plan as documented. SUBJECTIVE: Pain in legs is better , no RAMOS , no fever or chills. No abd pain OBJECTIVE: NAD HEENT:MMM, icteric sclera, jaundiced skin CV: RRR, 3/6 SM at LLSB and base. Lungs: CTAB Abd: soft, NT, ND ,NL BS. Ext : no edema or erythema ASSESSMENT AND PLAN: 49 y/o lady with h/o chronic iron def anemia, fibroids, no h/o transfusion, anxiety , depression, migraines, recent hospitalization to [facility] with a diagnosis of pyelonephritis and bacteremia. She presented with syncope 1- Syncope: no recurrence 2- Drug induced liver injury: - LFTs slightly up today. - Hep B serology Neg. - If LFTS cont to increase despite holding the offending medication, then steroids might be indicated. will d/w GI - follow ANTONIO , antismooth muscle Abs, and soluble liver Abs - no evidence of hemolysis - Arsh's testing in progress 3- H/o pyelonephritis and E coli bacteremia - no signs of sepsis at this time. doing well off Abx repeat Blood cx neg case d/w Dr. Cornell 4- Symptomatic chronic microcytic anemia: stable HB here - follow HB electropheresis - LDh and hapto do not suggest hemolysis - EGD with possible gastritis but no ulcers or source of bleeding. Bx for HP and celiac taken . - repeat iron studies as out pt - HB in am . transfuse for Hb < 7 5- Migraines. resolved 6- SCds for now due to anemia .
[2019-03-28 16:07] LABS: GLIADIN ANTIBODY IGA 6 units (0-19); GLIADIN ANTIBODY IGG 2 units (0-19); TRANSGLUTAMINASE IGG < 2 U/mL (0-5)
[2019-03-28] MEDS ORDERED: PT OWN MED DRAWER 7, Y5N ONE (18:06)
--- NOTE | 2019-03-28 18:16 | PN ---
Physical Exam: SUBJECTIVE: Patient seen and examined at the bedside. No acute events overnight. Ambulating well, no headaches overnight. OBJECTIVE: Vital Signs Period Temp Pulse Resp BP Sys/Delgado Pulse Ox Last 24 Hr 97.5 F-98.0 F 68-80 13-20 106-152/65-86 98-100 GENERAL: The patient is awake, alert, and fully oriented, in no acute distress. HEAD: Normal with no signs of trauma. NECK: supple. LUNGS: Breath sounds equal, clear to auscultation bilaterally, no wheezes, no crackles, no accessory muscle use. HEART: Regular rate and rhythm, S1, S2 without murmur, rub or gallop. ABDOMEN: Soft, nontender, nondistended, no guarding, no rebound. EXTREMITIES: 2+ pulses, warm, well-perfused, no edema, strength improved slightly reduced in left side. NEUROLOGICAL: Cranial nerves II through XII grossly intact. Normal speech, gait not observed. PSYCH: Normal mood, normal affect. SKIN: Warm, dry, no rashes or lesions noted Laboratory Results - last 24 hr 03/24/19 03/26/19 03/26/19 15:40 05:30 09:43 WBC RBC Hgb Hct MCV MCH MCHC RDW Plt Count MPV Neutrophils % Neutrophils % (Manual) Band Neutrophils % Lymphocytes % Lymphocytes % (Manual) Monocytes % (Manual) Eosinophils % (Manual) Basophils % (Manual) Myelocytes % (Man) Promyelocytes % (Man) Blast Cells % (Manual) Nucleated RBC % Metamyelocytes Hypochromia Platelet Estimate Polychromasia Poikilocytosis Anisocytosis Microcytosis Macrocytosis Target Cells Ovalocytes Total Bilirubin Direct Bilirubin AST ALT Alkaline Phosphatase Total Protein Albumin IgA 449 H ANTONIO Screen Positive H ANTONIO Homogeneous Pattern 1:80 ANTONIO Nucleolar Pattern TNP ANTONIO Spindle Yan Pattern TNP ANTONIO Midbody Pattern TNP ANTONIO Centriole Pattern TNP ANTONIO Nuclear Dot Pattern TNP ANTONIO PCNA Pattern TNP ANTONIO Nuclear Membr Pat TNP ANTONIO Speckled Pattern TNP ANTONIO Centromere Pattern TNP Smooth Musc &POOL PLAYER Intrp Endomysial IgA Ab Negative Tiss Transglutamin IgG < 2 Tiss Transglutamin IgA <2 Anti-Gliadin IgG Ab 2 Anti-Gliadin IgA Ab 6 Blood Type A POSITIVE Antibody Screen Negative Crossmatch See Detail 03/26/19 03/28/19 03/28/19 09:43 07:00 07:00 WBC 10.8 H RBC 3.64 Hgb 7.0 L Hct 22.6 L MCV 62.1 L MCH 19.1 L MCHC 30.8 L RDW 25.5 H Plt Count 746 H MPV 8.7 Neutrophils % No Result Required. Neutrophils % (Manual) 67.7 Band Neutrophils % 1.0 Lymphocytes % No Result Required. Lymphocytes % (Manual) 9.1 Monocytes % (Manual) 11 H Eosinophils % (Manual) 6.1 H Basophils % (Manual) 0.0 Myelocytes % (Man) 5 H D Promyelocytes % (Man) 0 Blast Cells % (Manual) 0 Nucleated RBC % 1 H Metamyelocytes 0 Hypochromia 1+ Platelet Estimate Increased Polychromasia 1+ Poikilocytosis 1+ Anisocytosis 2+ Microcytosis 2+ Macrocytosis 0 Target Cells 2+ Ovalocytes 2+ Total Bilirubin 6.2 H Direct Bilirubin 5.6 H AST 348 H ALT 179 H Alkaline Phosphatase 955 H Total Protein 6.0 L Albumin 2.0 L IgA ANTONIO Screen ANTONIO Homogeneous Pattern ANTONIO Nucleolar Pattern ANTONIO Spindle Yan Pattern ANTONIO Midbody Pattern ANTONIO Centriole Pattern ANTONIO Nuclear Dot Pattern ANTONIO PCNA Pattern ANTONIO Nuclear Membr Pat ANTONIO Speckled Pattern ANTONIO Centromere Pattern Smooth Musc &POOL PLAYER Intrp 9 Endomysial IgA Ab Tiss Transglutamin IgG Tiss Transglutamin IgA Anti-Gliadin IgG Ab Anti-Gliadin IgA Ab Blood Type Antibody Screen Crossmatch Active Medications Generic Name Dose Route Start Last Admin Trade Name Freq PRN Reason Stop Dose Admin Bupropion HCl 150 mg 03/25/19 10:00 03/28/19 10:11 Wellbutrin Xl - PO 150 mg DAILY LUCERO Administration Docusate Sodium 100 mg 03/27/19 14:46 Colace - PO BID PRN CONSTIPATION Polyethylene Glycol 17 gm 03/27/19 14:47 Miralax (For Daily Use) - PO DAILY PRN CONSTIPATION Sumatriptan Succinate 100 mg 03/25/19 01:06 03/26/19 10:06 Imitrex - PO 100 mg PRN PRN Administration HEADACHE Venlafaxine HCl 150 mg 03/25/19 10:00 03/28/19 10:11 Effexor Xr - PO 150 mg DAILY LUCERO Administration ASSESSMENT/PLAN: 49 y/o lady with h/o chronic iron def anemia, fibroids, no h/o transfusion, anxiety , depression, migraines, recent hospitalization to [facility] with a diagnosis of pyelonephritis and bacteremia. She presented with syncope #Syncope - likely due to orthostasis - EKG reviewed. -trops negative. #Sepsis either 2/2 to urinary source or GI biliary source. - still believe due to bactrim use - follow blood cx's continue to be negative - Hep Panel negative. - may use steroids if HBV comes back negative as per Dr. Sprague. - GI consult([facility])- no steroids at this time, did Bx for H pylori, celiac, mild antral erythema and small hiatal hernia otherwise unremarkable. - Celiac w/u negative in serum, IgA high at 449, sm muscle 9 (nl), diann w/u pending, may need slit lamp eval by optho for junior flescher rings. - consulted ID- Dr. Cornell recommends no abx at this time. - will continue to trend LFT's - ? need for liver bx as FIB-4 score is 1.64. #Microcytic anemia: - chronic - EGD Colonoscopy as o/p when pt stable (digiornio) - Fibroids stable no bleeding. - check hb electropheresis to r/o thallesemias - check LDH , Haptoglobin - FOBT negative - transfuse if Hb < 7, currently Hb 7. Dr. sprague does not believe she needs transfususion bc pt remains asymptomatic and its chronic anemia with no signs of bleeding. will continue to monitor. #Migraines. - resolved now - no signs of RIB CHOPPER infection. no fluids indicated at this time monitor lytes,Hb regular diet DVT PPX: SCD's for now pending above w/u before starting any AC's. Visit type - Emergency Visit Emergency Visit: No - New Patient This patient is new to me today: No - Critical Care Critical Care patient: No - Discharge Referral Referred to [facility] Med P.C.: No ATTENDING PHYSICIAN STATEMENT I saw and evaluated the patient. I reviewed the resident's note and discussed the case with the resident. I agree with the resident's findings and plan as documented. SUBJECTIVE: OBJECTIVE: ASSESSMENT AND PLAN:
[2019-03-29 08:06] LABS: HEMATOCRIT 23.3 % (32.4-45.2); HEMOGLOBIN 7.1 GM/dL (10.7-15.3); MCHC 30.3 g/dl (32.0-36.0); MEAN CELL VOLUME 63.6 fl (80-96); MEAN PLT VOLUME 8.6 fl (7.5-11.1); PLATELET COUNT 732 K/MM3 (134-434); RBC 3.66 M/mm3 (3.60-5.2); WHITE BLOOD COUNT 10.6 K/mm3 (4.0-10.0)
[2019-03-29 08:28] LABS: INR 1.38 (0.83-1.09); PROTHROMBIN TIME (PATIENT) 16.3 SEC (9.7-13.0)
[2019-03-29 08:44] LABS: BILIRUBIN,TOTAL 5.8 mg/dL (0.2-1); CALCIUM 9.1 mg/dL (8.5-10.1); CREATININE 0.6 mg/dL (0.55-1.3); POTASSIUM 4.1 mmol/L (3.5-5.1); TOT PROT 6.1 g/dl (6.4-8.2)
[2019-03-29 09:06] LABS: MCH 19.3 pg (25.7-33.7)
[2019-03-29] MEDS ORDERED: PT OWN MED DRAWER 7, Y5N ONE ×2 (09:25→09:29)
[2019-03-29] MEDS: VENLAFAXINE HCL 75 MG E.R. CAPSULES (FP) PO SCH (09:27)
--- NOTE | 2019-03-29 11:25 | PN ---
Progress Note, Physician History of Present Illness: stable no new issues - Current Medication List Current Medications: Active Medications Bupropion HCl (Wellbutrin Xl -) 150 mg PO DAILY [facility] Last Admin: 03/29/19 09:26 Dose: 150 mg Docusate Sodium (Colace -) 100 mg PO BID PRN PRN Reason: CONSTIPATION Polyethylene Glycol (Miralax (For Daily Use) -) 17 gm PO DAILY PRN PRN Reason: CONSTIPATION Sumatriptan Succinate (Imitrex -) 100 mg PO PRN PRN PRN Reason: HEADACHE Last Admin: 03/26/19 10:06 Dose: 100 mg Venlafaxine HCl (Effexor Xr -) 150 mg PO DAILY [facility] Last Admin: 03/29/19 09:27 Dose: 150 mg - Objective Vital Signs: Vital Signs Temperature 97.3 F L 03/29/19 08:28 Pulse Rate 79 03/29/19 08:28 Respiratory Rate 16 03/29/19 08:28 Blood Pressure 110/62 03/29/19 08:28 O2 Sat by Pulse Oximetry (%) 98 03/29/19 08:20 Constitutional: Yes: No Distress, Calm, Obese Cardiovascular: Yes: S1, S2 Respiratory: Yes: Regular, CTA Bilaterally Gastrointestinal: Yes: Normal Bowel Sounds, Soft Musculoskeletal: Yes: WNL Extremities: Yes: WNL Neurological: Yes: Alert, Oriented Psychiatric: Yes: Alert, Oriented Labs: CBC, BMP 03/29/19 06:30 03/29/19 06:30 INR, PTT INR 1.38 (0.83-1.09) H 03/29/19 06:30 Assessment/Plan 49 y/o lady with h/o chronic iron def anemia, fibroids, no h/o transfusion, anxiety , depression, migraines, recent hospitalization to [facility] with a diagnosis of pyelonephritis and bacteremia. She presented with syncope her findings are probably due to bactrim has no symptms of nfection at this time h and h dropping plan continue to monitor without abx post endoscopy doing well
[2019-03-29 12:08] LABS: HGB SOLUBILITY Negative (Negative); Hgb C 0 % (0.0); Hgb F 0 % (0.0-2.0); Hgb S 0 % (0.0)
--- NOTE | 2019-03-29 15:44 | PN.GI ---
GI Progress Note Subjective: Patient states feeling well, overall improved Serum copper and 24 hour urine collection for copper pending - Objective Vital Signs: Vital Signs Temperature 97.5 F L 03/29/19 14:56 Pulse Rate 77 03/29/19 14:56 Respiratory Rate 18 03/29/19 14:56 Blood Pressure 130/88 03/29/19 14:56 O2 Sat by Pulse Oximetry (%) 98 03/29/19 08:20 Constitutional: Calm Eyes: No: Sclera Icterus Cardiovascular: Yes: Regular Rate and Rhythm Respiratory: Yes: CTA Bilaterally Gastrointestinal Inspection: No: Scars ...Auscultate: Yes: Normoactive Bowel Sounds ...Palpate: Yes: Soft. No: Tenderness ...Percussion: No: Tympanitic Edema: No (No LE edema) Neurological: Yes: Alert Labs: CBC, BMP 03/29/19 06:30 03/29/19 06:30 INR, PTT INR 1.38 (0.83-1.09) H 03/29/19 06:30 Hepatic Panel Total Bilirubin 5.8 mg/dL (0.2-1) H 03/29/19 06:30 Direct Bilirubin 5.6 mg/dL (0.0-0.2) H 03/28/19 07:00 AST 290 U/L (15-37) H 03/29/19 06:30 ALT 175 U/L (13-61) H 03/29/19 06:30 Alkaline Phosphatase 989 U/L (45-117) H 03/29/19 06:30 Albumin 2.0 g/dl (3.4-5.0) L 03/29/19 06:30 Problem List - Problems (1) Abnormal liver function tests Assessment/Plan: Cholestatic liver dysfunction: Suspected bactrim induced ALP rising, however slight improvement in bili and improvement in coagulopathy Would monitor for now. 24 hour urine copper pending / serum copper pending. Doubt this is Arsh's. Heme evaluation. Celiac panel neg. Avoid hepatotoxic agents including APAP Obtain records from [facility] to compare lab studies Code(s): R94.5 - ABNORMAL RESULTS OF LIVER FUNCTION STUDIES
--- NOTE | 2019-03-29 16:28 | PN ---
Physical Exam: SUBJECTIVE: Patient seen and examined at the bedside. No acute events overnight. OBJECTIVE: Vital Signs Period Temp Pulse Resp BP Sys/Delgado Pulse Ox Last 24 Hr 97.3 F-98.1 F 73-84 16-20 110-135/62-88 98-99 GENERAL: The patient is awake, alert, and fully oriented, in no acute distress. HEAD: Normal with no signs of trauma. NECK: supple. LUNGS: Breath sounds equal, clear to auscultation bilaterally, no wheezes, no crackles, no accessory muscle use. HEART: Regular rate and rhythm, S1, S2 without murmur, rub or gallop. ABDOMEN: Soft, nontender, nondistended, no guarding, no rebound. EXTREMITIES: 2+ pulses, warm, well-perfused, no edema. NEUROLOGICAL: Cranial nerves II through XII grossly intact. Normal speech, gait not observed. PSYCH: Normal mood, normal affect. SKIN: Warm, dry, no rashes or lesions noted Laboratory Results - last 24 hr 03/26/19 03/26/19 03/26/19 05:30 09:43 09:43 WBC RBC Hgb Hct MCV MCH MCHC RDW Plt Count MPV Hemoglobin A 98.0 Hemoglobin A2 2.0 Hemoglobin C 0 Hemoglobin S 0 Variant Hemoglobin 0.0 Hemoglobin Interpret Maternal Rh 0 Hemoglobin Solubility Negative Haptoglobin PT with INR INR Sodium Potassium Chloride Carbon Dioxide Anion Gap BUN Creatinine Est GFR (CKD-EPI)AfAm Est GFR (CKD-EPI)NonAf Random Glucose Calcium Total Bilirubin AST ALT Alkaline Phosphatase Total Protein Albumin Urine Creatinine Urine Copper Ur Copper 24 Hr Ur Copper/Creat Ratio ANTONIO Screen Positive H ANTONIO Homogeneous Pattern 1:80 ANTONIO Nucleolar Pattern TNP ANTONIO Spindle Yan Pattern TNP ANTONIO Midbody Pattern TNP ANTONIO Centriole Pattern TNP ANTONIO Nuclear Dot Pattern TNP ANTONIO PCNA Pattern TNP ANTONIO Nuclear Membr Pat TNP ANTONIO Speckled Pattern TNP ANTONIO Centromere Pattern TNP Soluble Liver Ag IgG Ab 1.0 03/27/19 03/28/19 03/29/19 06:31 07:00 06:30 WBC RBC Hgb Hct MCV MCH MCHC RDW Plt Count MPV Hemoglobin A Hemoglobin A2 Hemoglobin C Hemoglobin S Variant Hemoglobin Hemoglobin Interpret Maternal Rh Hemoglobin Solubility Haptoglobin 281 H PT with INR INR Sodium 140 Potassium 4.1 Chloride 105 Carbon Dioxide 26 Anion Gap 8 BUN 6.0 L Creatinine 0.6 Est GFR (CKD-EPI)AfAm 125.80 Est GFR (CKD-EPI)NonAf 108.54 Random Glucose 96 Calcium 9.1 Total Bilirubin 5.8 H AST 290 H ALT 175 H Alkaline Phosphatase 989 H Total Protein 6.1 L Albumin 2.0 L Urine Creatinine Cancelled Urine Copper Cancelled Ur Copper 24 Hr Cancelled Ur Copper/Creat Ratio Cancelled ANTONIO Screen ANTONIO Homogeneous Pattern ANTONIO Nucleolar Pattern ANTONIO Spindle Yan Pattern ANTONIO Midbody Pattern ANTONIO Centriole Pattern ANTONIO Nuclear Dot Pattern ANTONIO PCNA Pattern ANTONIO Nuclear Membr Pat ANTONIO Speckled Pattern ANTONIO Centromere Pattern Soluble Liver Ag IgG Ab 03/29/19 03/29/19 06:30 06:30 WBC 10.6 H RBC 3.66 Hgb 7.1 L Hct 23.3 L MCV 63.6 L MCH 19.3 L MCHC 30.3 L RDW 26.0 H Plt Count 732 H MPV 8.6 Hemoglobin A Hemoglobin A2 Hemoglobin C Hemoglobin S Variant Hemoglobin Hemoglobin Interpret Maternal Rh Hemoglobin Solubility Haptoglobin PT with INR 16.30 H INR 1.38 H Sodium Potassium Chloride Carbon Dioxide Anion Gap BUN Creatinine Est GFR (CKD-EPI)AfAm Est GFR (CKD-EPI)NonAf Random Glucose Calcium Total Bilirubin AST ALT Alkaline Phosphatase Total Protein Albumin Urine Creatinine Urine Copper Ur Copper 24 Hr Ur Copper/Creat Ratio ANTONIO Screen ANTONIO Homogeneous Pattern ANTONIO Nucleolar Pattern ANTONIO Spindle Yan Pattern ANTONIO Midbody Pattern ANTONIO Centriole Pattern ANTONIO Nuclear Dot Pattern ANTONIO PCNA Pattern ANTONIO Nuclear Membr Pat ANTONIO Speckled Pattern ANTONIO Centromere Pattern Soluble Liver Ag IgG Ab Active Medications Generic Name Dose Route Start Last Admin Trade Name Freq PRN Reason Stop Dose Admin Bupropion HCl 150 mg 03/25/19 10:00 03/29/19 09:26 Wellbutrin Xl - PO 150 mg DAILY LUCERO Administration Docusate Sodium 100 mg 03/27/19 14:46 Colace - PO BID PRN CONSTIPATION Polyethylene Glycol 17 gm 03/27/19 14:47 Miralax (For Daily Use) - PO DAILY PRN CONSTIPATION Sumatriptan Succinate 100 mg 03/25/19 01:06 03/26/19 10:06 Imitrex - PO 100 mg PRN PRN Administration HEADACHE Venlafaxine HCl 150 mg 03/25/19 10:00 03/29/19 09:27 Effexor Xr - PO 150 mg DAILY LUCERO Administration ASSESSMENT/PLAN: 49 y/o lady with h/o chronic iron def anemia, fibroids, no h/o transfusion, anxiety , depression, migraines, recent hospitalization to [facility] with a diagnosis of pyelonephritis and bacteremia. She presented with syncope #Syncope - likely due to orthostasis - resolved #Sepsis either 2/2 to urinary source or GI biliary source. - still believe due to bactrim use - Dr Joyce: believes it is from bactrim, less likely diann dx, cholestatitic liver dx, ALP still rising celiac panel pending as is the serum copper and recommends a Heme eval. - GI consult([facility])- awaiting Bx results for H pylori, celiac, mild antral erythema and small hiatal hernia otherwise unremarkable. - Celiac w/u negative in serum, IgA high at 449, sm muscle 9 (nl), diann w/u pending, may need slit lamp eval by optho for junior flescher rings. - consulted ID- Dr. Cornell recommends no abx at this time. - will continue to trend LFT's - ? need for liver bx as FIB-4 score is 1.64. #Microcytic anemia: - chronic - Colonoscopy as o/p when pt stable (digiornio) - Fibroids stable no bleeding. - check Hb electropheresis to r/o thallesemias - check LDH , Haptoglobin - FOBT negative - transfuse if Hb < 7, currently Hb 7. Dr. sprague does not believe she needs transfususion bc pt remains asymptomatic and its chronic anemia with no signs of bleeding. will continue to monitor. #Migraines. - resolved now - no signs of PLASTERER SPRAY GUN infection. no fluids indicated at this time monitor lytes,Hb regular diet DVT PPX: SCD's for now pending above w/u before starting any AC's. Visit type - Emergency Visit Emergency Visit: No - New Patient This patient is new to me today: No - Critical Care Critical Care patient: No - Discharge Referral Referred to [facility] Med P.C.: No ATTENDING PHYSICIAN STATEMENT I saw and evaluated the patient. I reviewed the resident's note and discussed the case with the resident. I agree with the resident's findings and plan as documented. SUBJECTIVE: OBJECTIVE: ASSESSMENT AND PLAN:
--- NOTE | 2019-03-29 18:42 | PN ---
Teaching Attending Note Name of Resident: Rajesh Camacho ATTENDING PHYSICIAN STATEMENT I saw and evaluated the patient. I reviewed the resident's note and discussed the case with the resident. I agree with the resident's findings and plan as documented. SUBJECTIVE: feels much better today. [place] snot have RAMOS , or pain in legs. No N/V, no fever OBJECTIVE: NAD HEENT: MMM, slightly icteric sclera CV: RRR, 3/6 SM at LLSB and base. Lungs: CTAB Ext: no edema or erythema ASSESSMENT AND PLAN: 49 y/o lady with h/o chronic iron def anemia, fibroids, no h/o transfusion, anxiety , depression, migraines, recent hospitalization to [facility] with a diagnosis of pyelonephritis and bacteremia. She presented with syncope 1- Syncope: no recurrence. 2- Drug induced liver injury: - LFTS started to improve , all systemic signs and symptoms have resolved - serum copper pending, urine copper was canceled 3- H/o pyelonephritis and E coli bacteremia - no signs of sepsis at this time. doing well off Abx repeat Blood cx neg 4- Symptomatic chronic microcytic anemia: s/p 1 unit of RBC transfusion - No signs of hemolyss, celiac Abs neg, HB electropheresis reveal Nl Hb. - No source of bleed on EGD. -? need colonoscopy. defer to GI. - heme consult 5- Migraines. resolved 6- SCds for now due to anemia.
[2019-03-30 07:32] LABS: HEMATOCRIT 23.8 % (32.4-45.2); HEMOGLOBIN 7.1 GM/dL (10.7-15.3); MCHC 29.6 g/dl (32.0-36.0); MEAN CELL VOLUME 64.6 fl (80-96); MEAN PLT VOLUME 8.6 fl (7.5-11.1); PLATELET COUNT 777 K/MM3 (134-434); RBC 3.69 M/mm3 (3.60-5.2); WHITE BLOOD COUNT 11.6 K/mm3 (4.0-10.0)
[2019-03-30 08:12] LABS: MCH 19.1 pg (25.7-33.7)
[2019-03-30 08:13] LABS: ADD RBC MORPHOLOGY YES
[2019-03-30 08:38] LABS: ALBUMIN 2.1 g/dl (3.4-5.0); BILIRUBIN,TOTAL 5.2 mg/dL (0.2-1); BLOOD UREA NITROGEN 5.3 mg/dL (7-18); CREATININE 0.7 mg/dL (0.55-1.3); POTASSIUM 4.2 mmol/L (3.5-5.1); TOT PROT 6.4 g/dl (6.4-8.2)
--- NOTE | 2019-03-30 09:41 | PN.GI ---
GI Progress Note Subjective: Pt seen/examined at bedside, feeling better, denies abdominal pain, n/v. Denies blood in stools. Tolerating regular diet. No complaints currently. - Objective Vital Signs: Vital Signs Temperature 98.5 F 03/30/19 09:35 Pulse Rate 86 03/30/19 09:35 Respiratory Rate 20 03/30/19 09:35 Blood Pressure 127/64 03/30/19 09:35 O2 Sat by Pulse Oximetry (%) 100 03/29/19 21:00 Constitutional: Well Nourished, No Distress, Calm Cardiovascular: Yes: WNL, Regular Rate and Rhythm Respiratory: Yes: WNL, Regular, CTA Bilaterally Gastrointestinal Inspection: Yes: WNL ...Palpate: Yes: Other (Abd soft, nt, nd) Labs: CBC, BMP 03/30/19 06:19 03/30/19 06:19 INR, PTT INR 1.38 (0.83-1.09) H 03/29/19 06:30 Problem List - Problems (1) Abnormal liver function tests Assessment/Plan: 49yo female with elevated LFTs suspected drug induced liver injury most likely secondary to bactrim. Pt feeling better and LFTs/coags are slowly improving. No biochemical or clinical features to suggest impending liver failure. ANTONIO positivity nonspecific, ASMA/LKM negative (less consistent with AI hepatitis). Hepatitis panel negative. -Continue to closely monitor LFT trend daily -Daily coags -Avoid nonessential hepatotoxic medications -Would add mitochondrial ab though still low suspicion for underlying autoimmune liver disease or PBC and unable to order as inpt (can pursue if continued elevation incl alk phos) -In setting of continued LFT improvement would hold off on liver biopsy currently however if plateaus or worsens would consider at that time for more definitive diagnosis Code(s): R94.5 - ABNORMAL RESULTS OF LIVER FUNCTION STUDIES (2) Anemia Assessment/Plan: Microcytic anemia noted with component of iron deficiency though may be multifactorial. Hb stable, no overt bleeding. EGD on 03/28 revealing antral erythema and small hiatal hernia otherwise unremarkable, biopsies pending. Longstanding anemia noted, no prior colonoscopy or family h/o colon ca. -Monitor Hb and for evidence of bleeding -Follow up EGD path results -Would recommend heme consult for further evaluation -No urgency for colonoscopy at this time, though can pursue prior to discharge or as outpt pending course once other issues resolved Code(s): D64.9 - ANEMIA, UNSPECIFIED Qualifiers: Anemia type: unspecified type Qualified Code(s): D64.9 - Anemia, unspecified
--- NOTE | 2019-03-30 10:42 | PN ---
Progress Note, Physician History of Present Illness: stable no new issues - Current Medication List Current Medications: Active Medications Bupropion HCl (Wellbutrin Xl -) 150 mg PO DAILY [facility] Last Admin: 03/29/19 09:26 Dose: 150 mg Docusate Sodium (Colace -) 100 mg PO BID PRN PRN Reason: CONSTIPATION Polyethylene Glycol (Miralax (For Daily Use) -) 17 gm PO DAILY PRN PRN Reason: CONSTIPATION Sumatriptan Succinate (Imitrex -) 100 mg PO PRN PRN PRN Reason: HEADACHE Last Admin: 03/26/19 10:06 Dose: 100 mg Venlafaxine HCl (Effexor Xr -) 150 mg PO DAILY [facility] Last Admin: 03/29/19 09:27 Dose: 150 mg - Objective Vital Signs: Vital Signs Temperature 98.5 F 03/30/19 09:35 Pulse Rate 86 03/30/19 09:35 Respiratory Rate 20 03/30/19 09:35 Blood Pressure 127/64 03/30/19 09:35 O2 Sat by Pulse Oximetry (%) 100 03/29/19 21:00 Constitutional: Yes: No Distress, Calm HENT: Yes: Atraumatic, Normocephalic Cardiovascular: Yes: S1, S2 Respiratory: Yes: Regular, CTA Bilaterally Gastrointestinal: Yes: Normal Bowel Sounds, Soft Musculoskeletal: Yes: WNL Extremities: Yes: WNL Neurological: Yes: Alert, Oriented Psychiatric: Yes: Alert, Oriented Labs: CBC, BMP 03/30/19 06:19 03/30/19 06:19 INR, PTT INR 1.38 (0.83-1.09) H 03/29/19 06:30 Assessment/Plan 49 y/o lady with h/o chronic iron def anemia, fibroids, no h/o transfusion, anxiety , depression, migraines, recent hospitalization to [facility] with a diagnosis of pyelonephritis and bacteremia. She presented with syncope her findings are probably due to bactrim has no symptms of nfection at this time h and h dropping plan stable monitor enzymes rest as per the team
[2019-03-30] MEDS: VENLAFAXINE HCL 75 MG E.R. CAPSULES (FP) PO SCH (10:47)
--- NOTE | 2019-03-30 11:12 | CONSULT ---
Consultation: CONSULT REQUEST: Heme/Onc HISTORY OF PRESENT ILLNESS: Patient is a 49 yo F with a PMhx of Chronic Iron def anemia, fibroids, HTN, anxiety, depression, recent hospitalization from [facility] for pyelo and bacteremia, presented to the ED w/ syncope. She was found with a Hgb of 6.7. She was transfused 1 U PRBC. She was reported to have a Hgb of 5.5 at [facility] but refused transfusion at the time. She did receive IV Iron at [facility]. She said she was always told she had iron deficiency anemia but never knew why. She said she has not seen a doctor in at least 1 year because of insurance issues. Patient admits taking 1-2 tablets of Excedrin daily because of headaches. She denies bloody stools, melena, hematemesis. She was also found to have transaminitis, which she did not have at [facility]. She is currently being seen by GI and it is suspected the Transaminitis is 2/2 drug induced liver injury from Bactrim use. Heme/Onc consulted for anemia. Pt is s/p EGD on 03/28 which was unremarkable. Patient currently denies symptoms. Denies sob, nausea, vomiting, chest pain, urinary symptoms, abdominal pain, dizziness. 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 OBGYN: LMP 1 year ago. 3-5 days. heavy. Colonoscopy: never REVIEW OF SYSTEMS: CONSTITUTIONAL: Absent: fever, chills, diaphoresis, generalized weakness, malaise, loss of appetite, weight change CARDIOVASCULAR: Absent: chest pain, syncope, palpitations, irregular heart rate, lightheadedness , peripheral edema RESPIRATORY: Absent: cough, shortness of breath, dyspnea with exertion, orthopnea, wheezing, stridor, hemoptysis GASTROINTESTINAL: Absent: abdominal pain, abdominal distension, nausea, vomiting, diarrhea, constipation, melena, hematochezia GENITOURINARY: Absent: dysuria, frequency, urgency, hesitancy, hematuria, flank pain, genital pain SKIN: Absent: rash, itching, pallor HEMATOLOGIC/IMMUNOLOGIC: Absent: easy bleeding, easy bruising, lymphadenopathy, frequent infections NEUROLOGIC: Absent: headache, focal weakness or paresthesias, dizziness, unsteady gait, seizure, mental status changes, bladder or bowel incontinence PSYCHIATRIC: Absent: anxiety, depression, suicidal or homicidal ideation, hallucinations. PHYSICAL EXAMINATION Vital Signs - 24 hr 03/29/19 03/29/19 03/29/19 14:56 18:00 20:36 Temperature 97.5 F L 98.3 F 98.3 F Pulse Rate 77 81 80 Respiratory 18 18 18 Rate Blood Pressure 130/88 132/82 137/78 O2 Sat by Pulse Oximetry (%) 03/29/19 03/30/19 21:00 09:35 Temperature 98.5 F Pulse Rate 86 Respiratory 18 20 Rate Blood Pressure 127/64 O2 Sat by Pulse 100 Oximetry (%) GENERAL: a/o x 3 EYES: PERRL, pale conjunctiva, mild icterus EARS, NOSE, THROAT: oropharynx clear without exudates. Moist mucous membranes. NECK:supple without lymphadenopathy, JVD, or masses. LUNGS: CTA b/l HEART: RRR, no murmurs appreciated ABDOMEN: obese, Soft, nontender, not distended LOWER EXTREMITIES: 2+ pulses, skin graft LLE BREAST: no palpable masses, no nipple discharge Laboratory Results - last 24 hr Active Medications Generic Name Dose Route Start Last Admin Trade Name Freq PRN Reason Stop Dose Admin Bupropion HCl 150 mg 03/25/19 10:00 03/30/19 10:47 Wellbutrin Xl - PO 150 mg DAILY LUCERO Administration Docusate Sodium 100 mg 03/27/19 14:46 Colace - PO BID PRN CONSTIPATION Polyethylene Glycol 17 gm 03/27/19 14:47 Miralax (For Daily Use) - PO DAILY PRN CONSTIPATION Sumatriptan Succinate 100 mg 03/25/19 01:06 03/26/19 10:06 Imitrex - PO 100 mg PRN PRN Administration HEADACHE Venlafaxine HCl 150 mg 03/25/19 10:00 03/30/19 10:47 Effexor Xr - PO 150 mg DAILY LUCERO Administration ASSESSMENT/PLAN: #Normochromic/Microcytic Anemia #Iron Deficiency #Drug induced Liver injury -Anemia from Iron deficiency with component of ACD -Thal ruled out -IV venofer. 200mg every other day x 3. will order first dose now. -Will send Flow cytometry to r/o other causes- MDS -FU GI reccs Dispo: We will continue to follow the patient. Thank you for this consultative opportunity. Visit type - Emergency Visit Emergency Visit: Yes ED Registration Date: 03/24/19 Care time: The patient presented to the Emergency Department on the above date and was hospitalized for further evaluation of their emergent condition. - New Patient This patient is new to me today: Yes Date on this admission: 03/30/19 - Critical Care Critical Care patient: No ATTENDING PHYSICIAN STATEMENT I saw and evaluated the patient. I reviewed the resident's note and discussed the case with the resident. I agree with the resident's findings and plan as documented. SUBJECTIVE: OBJECTIVE: ASSESSMENT AND PLAN:
[2019-03-30 12:31] LABS: ANISOCYTOSIS 3+; TARGET CELLS 3+; TEAR DROP CELLS 1+
--- NOTE | 2019-03-30 14:53 | PN ---
Teaching Attending Note Name of Resident: Rajesh Camacho ATTENDING PHYSICIAN STATEMENT I saw and evaluated the patient. I reviewed the resident's note and discussed the case with the resident. I agree with the resident's findings and plan as documented. SUBJECTIVE: Patient feels tired, and diffuse pain but wiley. RLQ OBJECTIVE: Vital Signs Temperature 98.5 F 03/30/19 09:35 Pulse Rate 86 03/30/19 09:35 Respiratory Rate 20 03/30/19 09:35 Blood Pressure 127/64 03/30/19 09:35 O2 Sat by Pulse Oximetry (%) 99 03/30/19 09:00 GENERAL: The patient is awake, alert, and fully oriented, in no acute distress. HEAD: Normal with no signs of trauma. NECK: supple. LUNGS: Breath sounds equal, clear to auscultation bilaterally, no wheezes, no crackles, no accessory muscle use. HEART: Regular rate and rhythm, S1, S2 without murmur, rub or gallop. ABDOMEN: Soft, nontender, nondistended, no guarding, no rebound. EXTREMITIES: 2+ pulses, warm, well-perfused, no edema. PSYCH: Normal mood, normal affect. SKIN: Warm, dry, no rashes or lesions noted CBCD WBC 11.6 K/mm3 (4.0-10.0) H 03/30/19 06:19 RBC 3.69 M/mm3 (3.60-5.2) 03/30/19 06:19 Hgb 7.1 GM/dL (10.7-15.3) L 03/30/19 06:19 Hct 23.8 % (32.4-45.2) L 03/30/19 06:19 MCV 64.6 fl (80-96) L 03/30/19 06:19 MCHC 29.6 g/dl (32.0-36.0) L 03/30/19 06:19 RDW 27.0 % (11.6-15.6) H 03/30/19 06:19 Plt Count 777 K/MM3 (134-434) H 03/30/19 06:19 MPV 8.6 fl (7.5-11.1) 03/30/19 06:19 CMP Sodium 140 mmol/L (136-145) 03/30/19 06:19 Potassium 4.2 mmol/L (3.5-5.1) 03/30/19 06:19 Chloride 105 mmol/L (98-107) 03/30/19 06:19 Carbon Dioxide 28 mmol/L (21-32) 03/30/19 06:19 Anion Gap 7 MMOL/L (8-16) L 03/30/19 06:19 BUN 5.3 mg/dL (7-18) L 03/30/19 06:19 Creatinine 0.7 mg/dL (0.55-1.3) 03/30/19 06:19 Random Glucose 96 mg/dL (74-106) 03/30/19 06:19 Calcium 9.0 mg/dL (8.5-10.1) 03/30/19 06:19 Total Bilirubin 5.2 mg/dL (0.2-1) H 03/30/19 06:19 AST 217 U/L (15-37) H 03/30/19 06:19 ALT 155 U/L (13-61) H 03/30/19 06:19 Alkaline Phosphatase 929 U/L (45-117) H 03/30/19 06:19 Total Protein 6.4 g/dl (6.4-8.2) 03/30/19 06:19 Albumin 2.1 g/dl (3.4-5.0) L 03/30/19 06:19 CARDIAC ENZYMES Creatine Kinase 32 U/L (26-192) 03/25/19 19:20 Troponin I < 0.02 ng/ml (0.00-0.05) 03/25/19 19:20 ASSESSMENT AND PLAN: Patient is 49yo female with PMHx of chronic iron def anemia, fibroids, no h/o transfusion, anxiety , depression, migraines, recent hospitalization to [facility] with a diagnosis of pyelonephritis and bacteremia and was given Bactrim DS. She presented with syncope # s/p Syncope: no further recurrence. # Drug induced liver injury/ drug induced hemolysis: improving , serum copper pending # H/o pyelonephritis and E coli bacteremia : no signs of sepsis at this time. doing well off Abx , repeat Blood cx neg # Symptomatic chronic microcytic anemia: s/p 1 unit of RBC transfusion , is consulted, s/p IV Iron # Migraines. resolved DVT PX: SCds
--- NOTE | 2019-03-30 16:17 | PN ---
Physical Exam: SUBJECTIVE: Patient seen and examined at the bedside. No acute events overnight. OBJECTIVE: Vital Signs Period Temp Pulse Resp BP Sys/Delgado Pulse Ox Last 24 Hr 98.3 F-98.5 F 80-86 18-20 113-137/64-82 99-100 GENERAL: The patient is awake, alert, and fully oriented, in no acute distress. HEAD: Normal with no signs of trauma. NECK: supple. LUNGS: Breath sounds equal, clear to auscultation bilaterally, no wheezes, no crackles, no accessory muscle use. HEART: Regular rate and rhythm, S1, S2 without murmur, rub or gallop. ABDOMEN: Soft, nontender, nondistended, no guarding, no rebound. EXTREMITIES: 2+ pulses, warm, well-perfused, no edema. PSYCH: Normal mood, normal affect. SKIN: Warm, dry, no rashes or lesions noted Laboratory Results - last 24 hr 03/28/19 03/30/19 03/30/19 07:00 06:19 06:19 WBC 11.6 H RBC 3.69 Hgb 7.1 L Hct 23.8 L MCV 64.6 L MCH 19.1 L MCHC 29.6 L RDW 27.0 H Plt Count 777 H MPV 8.6 Absolute Neuts (auto) 3.9 Total Counted 100 Neutrophils % No Result Required. Neutrophils % (Manual) 67.0 Band Neutrophils % 2.0 Lymphocytes % No Result Required. Lymphocytes % (Manual) 20.0 D Monocytes % (Manual) 6 Eosinophils % (Manual) 1.0 D Basophils % (Manual) 1.0 D Myelocytes % (Man) 1 D Nucleated RBC % 3 H Metamyelocytes 1 D Hypochromia 2+ Polychromasia 1+ Poikilocytosis 3+ Anisocytosis 3+ Microcytosis 3+ Target Cells 3+ Tear Drop Cells 1+ Sodium 140 Potassium 4.2 Chloride 105 Carbon Dioxide 28 Anion Gap 7 L BUN 5.3 L Creatinine 0.7 Est GFR (CKD-EPI)AfAm 119.58 Est GFR (CKD-EPI)NonAf 103.18 Random Glucose 96 Calcium 9.0 Total Bilirubin 5.2 H AST 217 H ALT 155 H Alkaline Phosphatase 929 H Total Protein 6.4 Albumin 2.1 L Urine Creatinine Cancelled Serum Copper 203 H Urine Copper Cancelled Ur Copper 24 Hr Cancelled Ur Copper/Creat Ratio Cancelled Active Medications Generic Name Dose Route Start Last Admin Trade Name Freq PRN Reason Stop Dose Admin Bupropion HCl 150 mg 03/25/19 10:00 03/30/19 10:47 Wellbutrin Xl - PO 150 mg DAILY LUCERO Administration Docusate Sodium 100 mg 03/27/19 14:46 Colace - PO BID PRN CONSTIPATION Polyethylene Glycol 17 gm 03/27/19 14:47 Miralax (For Daily Use) - PO DAILY PRN CONSTIPATION Sumatriptan Succinate 100 mg 03/25/19 01:06 03/26/19 10:06 Imitrex - PO 100 mg PRN PRN Administration HEADACHE Venlafaxine HCl 150 mg 03/25/19 10:00 03/30/19 10:47 Effexor Xr - PO 150 mg DAILY LUCERO Administration ASSESSMENT/PLAN: 49 y/o lady with h/o chronic iron def anemia, fibroids, no h/o transfusion, anxiety , depression, migraines, recent hospitalization to [facility] with a diagnosis of pyelonephritis and bacteremia. She presented with syncope #Syncope - likely due to orthostasis - resolved #Sepsis either 2/2 to urinary source or GI biliary source. - still believe due to bactrim use - Dr Joyce: believes it is from bactrim, less likely diann dx, cholestatitic liver dx, ALP still rising celiac panel pending as is the serum copper and recommends a Heme eval. - GI consult([facility])- Would add mitochondrial ab though still low suspicion for underlying autoimmune liver disease or PBC and unable to order as inpt (can pursue if continued ALP rise) -In setting of continued LFT improvement would hold off on liver biopsy currently however if plateaus or worsens would consider at that time for more definitive diagnosis. - Celiac w/u negative in serum bx results pending, IgA high at 449, sm muscle 9 (nl), diann w/u cancelled. - LKM, ASMA negative so less likely Autoimmune Hepatitis. - consulted ID- Dr. Cornell recommends no abx at this time, likely bactrim induced. - will continue to trend LFT's - ? need for liver bx as FIB-4 score is 1.64, will consider if pt. - Heme is consulted awaiting recs: #Microcytic anemia: - chronic - Colonoscopy as o/p when pt stable ([facility]) - check Hb electropheresis to r/o thallesemias - check LDH , Haptoglobin - FOBT negative - transfuse if Hb < 7 Dr. Latham- thinks iron deficiency anemia and AOCD, will do flow cytometry to r/ o MDS and IV venofir 200 1 dose 03/30 then another one 48 hrs from now and then 1 48 hrs from then. #Migraines. 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 #FEN no fluids indicated at this time monitor lytes,Hb regular diet DVT PPX: SCD's for now pending above w/u before starting any AC's. Visit type - Emergency Visit Emergency Visit: No - New Patient This patient is new to me today: No - Critical Care Critical Care patient: No - Discharge Referral Referred to [facility] Med [facility] No ATTENDING PHYSICIAN STATEMENT I saw and evaluated the patient. I reviewed the resident's note and discussed the case with the resident. I agree with the resident's findings and plan as documented. SUBJECTIVE: OBJECTIVE: ASSESSMENT AND PLAN:
--- NOTE | 2019-03-30 17:06 | PN ---
Teaching Attending Note Name of Resident: Amy Mccann ATTENDING PHYSICIAN STATEMENT I saw and evaluated the patient. I reviewed the resident's note and discussed the case with the resident. I agree with the resident's findings and plan as documented. SUBJECTIVE: Patient seen and examined Hypo/micro anemia -Has required transfusions in past . Denies bleeding, melena, hematochezia. HbE - no evidence of thalassemia Celiac work up - non revealing EGD - failed to reveal any bleeding site never had colonoscopy Fe++ studies with seum Fe++ -28, TIBC-237; ferritin -215 Stool guaic - negative Takes 1-2 excedrin almost daily with headaches ( excedrin-- ASA, tylenol, and caffeine) Last Vital Signs Temp Pulse Resp BP Pulse Ox 98.5 F 81 20 113/65 99 03/30/19 15:27 03/30/19 15:27 03/30/19 15:27 03/30/19 15:27 03/30/19 09:00 HEENT: HIMANSHU, EOM Intact Oropharynx: No thrush, No mucositis Neck: Supple Nodes: Without adenopathy Breasts: Without masses Cor: RSR, No murmurs, No gallops Lungs: Clear to P&A Abd: Soft, Normal bowel sounds, No organomegaly Ext:No significant edema Skin: No rashes, Integument intact CBC, BMP 03/30/19 06:19 03/30/19 06:19 Current Medications Generic Name Dose Route Start Last Admin Trade Name Freq PRN Reason Stop Dose Admin Bupropion HCl 150 mg 03/25/19 10:00 03/30/19 10:47 Wellbutrin Xl - PO 150 mg DAILY LUCERO Administration Docusate Sodium 100 mg 03/27/19 14:46 Colace - PO BID PRN CONSTIPATION Iron Sucrose 200 mg/ Sodium 100 mls @ 100 mls/hr 03/30/19 17:06 Chloride IVPB 03/30/19 18:05 ONCE ONE Polyethylene Glycol 17 gm 03/27/19 14:47 Miralax (For Daily Use) - PO DAILY PRN CONSTIPATION Sumatriptan Succinate 100 mg 03/25/19 01:06 03/26/19 10:06 Imitrex - PO 100 mg PRN PRN Administration HEADACHE Venlafaxine HCl 150 mg 03/25/19 10:00 03/30/19 10:47 Effexor Xr - PO 150 mg DAILY LUCERO Administration OBJECTIVE: Impression: Fe++ deficiency Chronic disease anemia --abnormal LFT's Plan:: Will do flow cytometry for MDS Copper evaluation underway Will need completion of GI assessment. ASSESSMENT AND PLAN:
[2019-03-30] MEDS ORDERED: IRON SUCROSE INJECTION 200 MG in SODIUM CHLORIDE 90 ML IVPB ONE (17:45)
--- NOTE | 2019-03-30 20:12 | PATH ---
Surgical Pathology Report Patient Name: MARIAH CORCORAN [facility]. Rec. #: [id number] /Age/Gender: 1970 (Age: 49) / F Account: [id number] Location: EMERGENCY ROOM Taken: 03/28/2019 Received: 03/28/2019 Reported: 03/30/2019 Physicians: Marycruz Douglas MD Specimen(s) Received A: SMALL BOWEL, BIOPSY B: ANTRUM Clinical History Anemia Postoperative diagnosis: Gastritis, hiatal hernia Final Diagnosis A. SMALL BOWEL, BIOPSY: Small bowel mucosa withOUT SIGNIFICANT PATHOLOGIC findings. B. STOMACH, ANTRUM, BIOPSY: GASTRIC ANTRAL MUCOSA WITH MILD CHRONIC ACTIVE GASTRITIS. IMMUNOHISTOCHEMICAL STAIN FOR H. PYLORI IS NEGATIVE. Electronically Signed Deepa Burciaga M.D. Gross Description A. Received in formalin, labeled "biopsy small bowel" are 4 sánchez, irregular portions of soft tissue ranging from 0.3-0.5 cm. in greatest dimension. The specimens are submitted in toto in one cassette. B. Received in formalin, labeled "biopsy antrum" are 2 sánchez, irregular portions of soft tissue measuring 0.2 and 0.4 cm. in greatest dimension. The specimens are submitted in toto in one cassette. 03/28/201903/28/2019
[2019-03-31 07:29] LABS: HEMATOCRIT 23.7 % (32.4-45.2); HEMOGLOBIN 7.1 GM/dL (10.7-15.3); MCHC 29.8 g/dl (32.0-36.0); MEAN CELL VOLUME 65.5 fl (80-96); MEAN PLT VOLUME 8.5 fl (7.5-11.1); PLATELET COUNT 650 K/MM3 (134-434); RBC 3.62 M/mm3 (3.60-5.2); RDW 26.9 % (11.6-15.6); WHITE BLOOD COUNT 10.1 K/mm3 (4.0-10.0)
[2019-03-31 07:53] LABS: IRON SERUM 262 ug/dL (50-175); TOTAL IRON BINDING CAPACITY 279 ug/dL (250-450)
[2019-03-31 08:01] LABS: BLOOD UREA NITROGEN 4.6 mg/dL (7-18); CALCIUM 8.8 mg/dL (8.5-10.1); CREATININE 0.6 mg/dL (0.55-1.3); POTASSIUM 3.7 mmol/L (3.5-5.1)
[2019-03-31 08:26] LABS: MCH 19.5 pg (25.7-33.7)
[2019-03-31] MEDS: VENLAFAXINE HCL 75 MG E.R. CAPSULES (FP) PO SCH (09:55)
[2019-03-31 10:33] LABS: ANISOCYTOSIS 2+; MACROCYTOSIS 0; OVALOCYTE 1+; PLATELET ESTIMATE INCREASED; TARGET CELLS 2+
--- NOTE | 2019-03-31 10:53 | PN ---
Progress Note, Physician History of Present Illness: stable no new issues lft improving - Current Medication List Current Medications: Active Medications Bupropion HCl (Wellbutrin Xl -) 150 mg PO DAILY [facility] Last Admin: 03/31/19 09:32 Dose: 150 mg Docusate Sodium (Colace -) 100 mg PO BID PRN PRN Reason: CONSTIPATION Polyethylene Glycol (Miralax (For Daily Use) -) 17 gm PO DAILY PRN PRN Reason: CONSTIPATION Sumatriptan Succinate (Imitrex -) 100 mg PO PRN PRN PRN Reason: HEADACHE Last Admin: 03/26/19 10:06 Dose: 100 mg Venlafaxine HCl (Effexor Xr -) 150 mg PO DAILY [facility] Last Admin: 03/31/19 09:55 Dose: 150 mg - Objective Vital Signs: Vital Signs Temperature 98.1 F 03/30/19 22:00 Pulse Rate 80 03/30/19 22:00 Respiratory Rate 17 03/30/19 22:00 Blood Pressure 137/74 03/30/19 22:00 O2 Sat by Pulse Oximetry (%) 100 03/30/19 21:00 Constitutional: Yes: No Distress, Calm Cardiovascular: Yes: S1, S2 Respiratory: Yes: Regular, CTA Bilaterally Gastrointestinal: Yes: Normal Bowel Sounds, Soft Musculoskeletal: Yes: WNL Extremities: Yes: WNL Neurological: Yes: Alert, Oriented Psychiatric: Yes: Alert, Oriented Labs: CBC, BMP 03/31/19 06:30 03/31/19 06:30 INR, PTT INR 1.38 (0.83-1.09) H 03/29/19 06:30 Assessment/Plan 49 y/o lady with h/o chronic iron def anemia, fibroids, no h/o transfusion, anxiety , depression, migraines, recent hospitalization to [facility] with a diagnosis of pyelonephritis and bacteremia. She presented with syncope her findings are probably due to bactrim has no symptms of nfection at this time h and h dropping plan stable monitor enzymes rest as per the team
--- NOTE | 2019-03-31 11:43 | PN.GI ---
GI Progress Note Subjective: No acute events States feeling better No abdominal pain - Objective Vital Signs: Vital Signs Temperature 98.1 F 03/30/19 22:00 Pulse Rate 80 03/30/19 22:00 Respiratory Rate 17 03/30/19 22:00 Blood Pressure 137/74 03/30/19 22:00 O2 Sat by Pulse Oximetry (%) 100 03/30/19 21:00 Constitutional: Calm Eyes: Yes: Sclera Icterus Cardiovascular: Yes: Regular Rate and Rhythm Gastrointestinal Inspection: No: Distention ...Auscultate: Yes: Normoactive Bowel Sounds ...Palpate: Yes: Soft. 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 Discussed potential risks of the procedure like but not limited to bleeding, perforation requiring surgery to repair, infection, sedation medication effects all of which could be potentially life threatening. She has agreed to the procedure. Heme following Code(s): D64.9 - ANEMIA, UNSPECIFIED Qualifiers: Anemia type: unspecified type Qualified Code(s): D64.9 - Anemia, unspecified
[2019-03-31] MEDS ORDERED: BISACODYL 5 MG TABLET.DR (FP) PO ONE (15:00)
[2019-03-31] MEDS ORDERED: PEG 3350/NA SULF BICARB CL/KCL 4000 ML SOLN.RECON PO ONE (16:00)
--- NOTE | 2019-03-31 16:17 | PN ---
Physical Exam: SUBJECTIVE: Patient seen and examined at the bedside. No acute events. OBJECTIVE: Vital Signs Period Temp Pulse Resp BP Sys/Delgado Pulse Ox Last 24 Hr 97.5 F-98.4 F 76-80 17-20 137-153/74-91 100-100 GENERAL: The patient is awake, alert, and fully oriented, in no acute distress. HEAD: Normal with no signs of trauma. EYES: PERRL, extraocular movements intact, sclera anicteric, conjunctiva clear. No ptosis. ENT: Ears normal, nares patent, oropharynx clear without exudates, moist mucous membranes. NECK: supple. LUNGS: Breath sounds equal, clear to auscultation bilaterally, no wheezes, no crackles, no accessory muscle use. HEART: Regular rate and rhythm, S1, S2 without murmur, rub or gallop. ABDOMEN: Soft, nontender, nondistended, no guarding, no rebound. EXTREMITIES: 2+ pulses, warm, well-perfused, no edema. NEUROLOGICAL: Cranial nerves II through XII grossly intact. Normal speech, gait not observed. PSYCH: Normal mood, normal affect. SKIN: Warm, dry, no rashes or lesions noted Laboratory Results - last 24 hr 03/31/19 03/31/19 03/31/19 06:30 06:30 06:30 WBC 10.1 H RBC 3.62 Hgb 7.1 L Hct 23.7 L MCV 65.5 L MCH 19.5 L MCHC 29.8 L RDW 26.9 H Plt Count 650 H MPV 8.5 Absolute Neuts (auto) No Result Required. Total Counted 100 Neutrophils % No Result Required. Neutrophils % (Manual) 66.7 Band Neutrophils % 2.0 Lymphocytes % No Result Required. Lymphocytes % (Manual) 18.2 Monocytes % No Result Required. Monocytes % (Manual) 6 Eosinophils % No Result Required. Eosinophils % (Manual) 1.0 Basophils % No Result Required. Basophils % (Manual) 0.0 Myelocytes % (Man) 0 D Promyelocytes % (Man) 0 Blast Cells % (Manual) 0 Nucleated RBC % 1 H Metamyelocytes 0 D Hypochromia 2+ Platelet Estimate Increased Platelet Comment Present Polychromasia 1+ Poikilocytosis 2+ Anisocytosis 2+ Microcytosis 1+ Macrocytosis 0 Spherocytes 1+ Target Cells 2+ Ovalocytes 1+ Stomatocytes 1+ Sodium 141 Potassium 3.7 Chloride 106 Carbon Dioxide 29 Anion Gap 6 L BUN 4.6 L Creatinine 0.6 Est GFR (CKD-EPI)AfAm 125.80 Est GFR (CKD-EPI)NonAf 108.54 Random Glucose 102 Calcium 8.8 Iron 262 H TIBC 279 Iron Saturation 93 H Unsaturated IBC 17 L Ferritin 212.7 Total Bilirubin 4.0 H AST 148 H ALT 126 H Alkaline Phosphatase 902 H Total Protein 6.0 L Albumin 2.0 L TSH 2.41 Free T4 1.30 Active Medications Generic Name Dose Route Start Last Admin Trade Name Freq PRN Reason Stop Dose Admin Bupropion HCl 150 mg 03/25/19 10:00 03/31/19 09:32 Wellbutrin Xl - PO 150 mg DAILY LUCERO Administration Polyethylene Glycol 17 gm 03/27/19 14:47 Miralax (For Daily Use) - PO DAILY PRN CONSTIPATION Sumatriptan Succinate 100 mg 03/25/19 01:06 03/26/19 10:06 Imitrex - PO 100 mg PRN PRN Administration HEADACHE Venlafaxine HCl 150 mg 03/25/19 10:00 03/31/19 09:55 Effexor Xr - PO 150 mg DAILY LUCERO Administration ASSESSMENT/PLAN: 49 y/o lady with h/o chronic iron def anemia, fibroids, no h/o transfusion, anxiety , depression, migraines, recent hospitalization to [facility] with a diagnosis of pyelonephritis and bacteremia. She presented with syncope #Syncope - likely due to orthostasis - resolved #Sepsis either 2/2 to urinary source or GI biliary source. - still believe due to bactrim use - Dr Joyce: believes it is from bactrim, less likely diann dx (high serum copper not consistent w diann dx, ALP downtrending, celiac panel normal. -In setting of continued LFT improvement would hold off on liver biopsy currently however if plateaus or worsens would consider at that time for more definitive diagnosis. - Celiac bx results pending, IgA high at 449, sm muscle 9 (nl). - LKM, ASMA negative so less likely Autoimmune Hepatitis. - consulted ID- Dr. Cornell recommends no abx at this time, likely bactrim induced. - will continue to trend LFT's - ? need for liver bx as FIB-4 score is 1.64, will consider if pt. - Heme is consulted awaiting recs: #Microcytic anemia: - chronic - Colonoscopy as o/p when pt stable (digiornio) - check Hb electropheresis to r/o thallesemias - check LDH , Haptoglobin - FOBT negative - transfuse if Hb < 7 Dr. Latham- thinks iron deficiency anemia and AOCD, will do flow cytometry to r/ o MDS and IV venofir 200 1 dose 03/30 then another one 48 hrs from now and then 1 48 hrs from then. #Migraines. - resolved now - no signs of ROLLER MAN infection. #FEN no fluids indicated at this time monitor lytes,Hb regular diet DVT PPX: SCD's for now pending above w/u before starting any AC's. Visit type - Emergency Visit Emergency Visit: No - New Patient This patient is new to me today: No - Critical Care Critical Care patient: No - Discharge Referral Referred to [facility] Med P.C.: No ATTENDING PHYSICIAN STATEMENT I saw and evaluated the patient. I reviewed the resident's note and discussed the case with the resident. I agree with the resident's findings and plan as documented. SUBJECTIVE: OBJECTIVE: ASSESSMENT AND PLAN:
--- NOTE | 2019-03-31 17:33 | PN ---
Teaching Attending Note Name of Resident: Rajesh Camacho ATTENDING PHYSICIAN STATEMENT I saw and evaluated the patient. I reviewed the resident's note and discussed the case with the resident. I agree with the resident's findings and plan as documented. SUBJECTIVE: Patient is comfortable with no acute distress. OBJECTIVE: Vital Signs Temperature 98.4 F 03/31/19 14:10 Pulse Rate 76 03/31/19 14:10 Respiratory Rate 17 03/31/19 09:00 Blood Pressure 153/91 03/31/19 14:10 O2 Sat by Pulse Oximetry (%) 100 03/31/19 09:00 GENERAL: The patient is awake, alert, and fully oriented, in no acute distress. HEAD: Normal with no signs of trauma. NECK: supple. LUNGS: Breath sounds equal, clear to auscultation bilaterally, no wheezes, no crackles, no accessory muscle use. HEART: Regular rate and rhythm, S1, S2 without murmur, rub or gallop. ABDOMEN: Soft, nontender, nondistended, no guarding, no rebound. EXTREMITIES: 2+ pulses, warm, well-perfused, no edema. PSYCH: Normal mood, normal affect. SKIN: Warm, dry, no rashes or lesions noted CBCD WBC 10.1 K/mm3 (4.0-10.0) H 03/31/19 06:30 RBC 3.62 M/mm3 (3.60-5.2) 03/31/19 06:30 Hgb 7.1 GM/dL (10.7-15.3) L 03/31/19 06:30 Hct 23.7 % (32.4-45.2) L 03/31/19 06:30 MCV 65.5 fl (80-96) L 03/31/19 06:30 MCHC 29.8 g/dl (32.0-36.0) L 03/31/19 06:30 RDW 26.9 % (11.6-15.6) H 03/31/19 06:30 Plt Count 650 K/MM3 (134-434) H 03/31/19 06:30 MPV 8.5 fl (7.5-11.1) 03/31/19 06:30 CMP Sodium 141 mmol/L (136-145) 03/31/19 06:30 Potassium 3.7 mmol/L (3.5-5.1) 03/31/19 06:30 Chloride 106 mmol/L (98-107) 03/31/19 06:30 Carbon Dioxide 29 mmol/L (21-32) 03/31/19 06:30 Anion Gap 6 MMOL/L (8-16) L 03/31/19 06:30 BUN 4.6 mg/dL (7-18) L 03/31/19 06:30 Creatinine 0.6 mg/dL (0.55-1.3) 03/31/19 06:30 Random Glucose 102 mg/dL (74-106) 03/31/19 06:30 Calcium 8.8 mg/dL (8.5-10.1) 03/31/19 06:30 Total Bilirubin 4.0 mg/dL (0.2-1) H 03/31/19 06:30 AST 148 U/L (15-37) H 03/31/19 06:30 ALT 126 U/L (13-61) H 03/31/19 06:30 Alkaline Phosphatase 902 U/L (45-117) H 03/31/19 06:30 Total Protein 6.0 g/dl (6.4-8.2) L 03/31/19 06:30 Albumin 2.0 g/dl (3.4-5.0) L 03/31/19 06:30 CARDIAC ENZYMES Creatine Kinase 32 U/L (26-192) 03/25/19 19:20 Troponin I < 0.02 ng/ml (0.00-0.05) 03/25/19 19:20 Current Medications Generic Name Dose Route Start Last Admin Trade Name Anusha PRN Reason Stop Dose Admin Bupropion HCl 150 mg 03/25/19 10:00 03/31/19 09:32 Wellbutrin Xl - PO 150 mg DAILY LUCERO Administration Polyethylene Glycol 17 gm 03/27/19 14:47 Miralax (For Daily Use) - PO DAILY PRN CONSTIPATION Sumatriptan Succinate 100 mg 03/25/19 01:06 03/26/19 10:06 Imitrex - PO 100 mg PRN PRN Administration HEADACHE Venlafaxine HCl 150 mg 03/25/19 10:00 03/31/19 09:55 Effexor Xr - PO 150 mg DAILY LUCERO Administration Home Medications Medication Instructions Recorded Bupropion HCl [Bupropion Xl] 150 mg PO DAILY 03/24/19 RX: Sumatriptan Succinate 100 mg PO PRN 03/24/19 Sulfamethoxazole/Trimethoprim 1 tab PO BID 03/24/19 [Bactrim Ds -] Venlafaxine HCl ER [Effexor Xr -] 150 mg PO DAILY 03/24/19 ASSESSMENT AND PLAN: Patient is 49yo female with PMHx of chronic iron def anemia, fibroids, no h/o transfusion, anxiety , depression, migraines, recent hospitalization to [facility] with a diagnosis of pyelonephritis and bacteremia and was given Bactrim DS. She presented with syncope # s/p Syncope: no further recurrence. # Drug induced liver injury/ drug induced hemolysis: due to Bactrim DS, improving , serum copper , flow cytometry for MDS as per # H/o pyelonephritis and E coli bacteremia : no signs of sepsis at this time. doing well off Abx , repeat Blood cx neg # Symptomatic chronic microcytic anemia: s/p 1 unit of RBC transfusion , is consulted, s/p IV Iron # Migraines. resolved DVT PX: SCds going to colonoscopy in am by
[2019-04-01 07:08] LABS: HEMOGLOBIN 7.2 GM/dL (10.7-15.3)
[2019-04-01 07:24] LABS: INR 1.34 (0.83-1.09); PROTHROMBIN TIME (PATIENT) 15.9 SEC (9.7-13.0)
[2019-04-01 07:25] LABS: HEMATOCRIT 24.3 % (32.4-45.2); MCHC 29.7 g/dl (32.0-36.0); MEAN CELL VOLUME 65.7 fl (80-96); MEAN PLT VOLUME 8.3 fl (7.5-11.1); RBC 3.69 M/mm3 (3.60-5.2); WHITE BLOOD COUNT 12.3 K/mm3 (4.0-10.0)
[2019-04-01 07:40] LABS: ALBUMIN 2.2 g/dl (3.4-5.0); BILIRUBIN,DIRECT 2.9 mg/dL (0.0-0.2); BILIRUBIN,TOTAL 3.4 mg/dL (0.2-1); BLOOD UREA NITROGEN 5.3 mg/dL (7-18); CALCIUM 9.1 mg/dL (8.5-10.1); CREATININE 0.6 mg/dL (0.55-1.3); POTASSIUM 3.6 mmol/L (3.5-5.1); TOT PROT 6.3 g/dl (6.4-8.2)
[2019-04-01 08:40] LABS: MCH 19.5 pg (25.7-33.7); PLATELET COUNT 639 K/MM3 (134-434)
--- NOTE | 2019-04-01 09:45 | PN ---
Progress Note, Physician History of Present Illness: stable no new issues - Current Medication List Current Medications: Active Medications Bupropion HCl (Wellbutrin Xl -) 150 mg PO DAILY [facility] Last Admin: 03/31/19 09:32 Dose: 150 mg Polyethylene Glycol (Miralax (For Daily Use) -) 17 gm PO DAILY PRN PRN Reason: CONSTIPATION Sumatriptan Succinate (Imitrex -) 100 mg PO PRN PRN PRN Reason: HEADACHE Last Admin: 03/26/19 10:06 Dose: 100 mg Venlafaxine HCl (Effexor Xr -) 150 mg PO DAILY [facility] Last Admin: 03/31/19 09:55 Dose: 150 mg - Objective Vital Signs: Vital Signs Temperature 97.9 F 04/01/19 06:00 Pulse Rate 79 04/01/19 06:00 Respiratory Rate 20 04/01/19 06:00 Blood Pressure 139/92 04/01/19 06:00 O2 Sat by Pulse Oximetry (%) 100 03/31/19 21:00 Constitutional: Yes: No Distress, Calm Cardiovascular: Yes: Regular Rate and Rhythm Respiratory: Yes: Regular, CTA Bilaterally Gastrointestinal: Yes: Normal Bowel Sounds, Soft Musculoskeletal: Yes: WNL Extremities: Yes: WNL Neurological: Yes: Alert, Oriented Psychiatric: Yes: Alert, Oriented Labs: CBC, BMP 04/01/19 06:44 04/01/19 06:44 INR, PTT INR 1.34 (0.83-1.09) H 04/01/19 06:44 Assessment/Plan 49 y/o lady with h/o chronic iron def anemia, fibroids, no h/o transfusion, anxiety , depression, migraines, recent hospitalization to [facility] with a diagnosis of pyelonephritis and bacteremia. She presented with syncope her findings are probably due to bactrim has no symptms of nfection at this time h and h dropping plan stable monitor enzymes rest as per the team patient for colonoscopy
[2019-04-01 11:28] LABS: ANISOCYTOSIS 3+; MACROCYTOSIS 1+; PLATELET ESTIMATE INCREASED; TARGET CELLS 2+
[2019-04-01] MEDS ORDERED: SIMETHICONE 40 MG/0.6 ML BOTTLE ONE (12:47)
[2019-04-01 13:08] LABS: CREATININE, UR 1.68 g/L (0.30-3.00)
--- NOTE | 2019-04-01 13:20 | PN ---
Progress Note (short form) - Note Progress Note: Colon complete. No source of iron deficiency anemia identified. Advance diet. Heme work-up. outpatient capsule Problem List - Problems (1) Abnormal liver function tests Code(s): R94.5 - ABNORMAL RESULTS OF LIVER FUNCTION STUDIES (2) Anemia Code(s): D64.9 - ANEMIA, UNSPECIFIED Qualifiers: Anemia type: unspecified type Qualified Code(s): D64.9 - Anemia, unspecified
[2019-04-01] MEDS ORDERED: IRON SUCROSE INJECTION 200 MG in SODIUM CHLORIDE 90 ML IVPB ONE (15:00)
--- NOTE | 2019-04-01 15:01 | PN ---
Physical Exam: SUBJECTIVE: Patient seen and examined at the bedside this AM. NO acute events overnight. Prior transfusions given were due to patient being amenable to transfusions. OBJECTIVE: Vital Signs Period Temp Pulse Resp BP Sys/Delgado Pulse Ox Last 24 Hr 97 F-98.0 F 70-87 18-20 119-141/59-96 98-100 GENERAL: The patient is awake, alert, and fully oriented, in no acute distress. HEAD: Normal with no signs of trauma. EYES: PERRL, extraocular movements grossly intact. NECK: supple. LUNGS: Breath sounds equal, clear to auscultation bilaterally, no wheezes, no crackles, no accessory muscle use. HEART: Regular rate and rhythm, S1, S2 without murmur, rub or gallop. ABDOMEN: Soft, nontender, nondistended, normoactive bowel sounds, no guarding, no rebound. EXTREMITIES: warm, well-perfused, no edema. NEUROLOGICAL: Cranial nerves II through XII grossly intact. Normal speech, gait not observed. PSYCH: Normal mood, normal affect. SKIN: Warm, dry, no rashes or lesions noted Laboratory Results - last 24 hr 03/29/19 04/01/19 04/01/19 07:00 06:44 06:44 WBC 12.3 H RBC 3.69 Hgb 7.2 L Hct 24.3 L MCV 65.7 L MCH 19.5 L MCHC 29.7 L RDW 28.0 H Plt Count 639 H MPV 8.3 Neutrophils % No Result Required. Neutrophils % (Manual) 75.3 Band Neutrophils % 0.0 Lymphocytes % No Result Required. Lymphocytes % (Manual) 19.4 Monocytes % (Manual) 3 L Eosinophils % (Manual) 2.1 D Basophils % (Manual) 0.0 Myelocytes % (Man) 0 Promyelocytes % (Man) 0 Blast Cells % (Manual) 0 Nucleated RBC % 1 H Metamyelocytes 0 Hypochromia 2+ Platelet Estimate Increased Polychromasia 2+ Poikilocytosis 2+ Anisocytosis 3+ Microcytosis 2+ Macrocytosis 1+ Target Cells 2+ Stomatocytes 2+ PT with INR INR Sodium 143 Potassium 3.6 Chloride 105 Carbon Dioxide 29 Anion Gap 9 BUN 5.3 L Creatinine 0.6 Est GFR (CKD-EPI)AfAm 125.80 Est GFR (CKD-EPI)NonAf 108.54 Random Glucose 93 Calcium 9.1 Total Bilirubin 3.4 H Direct Bilirubin 2.9 H AST 116 H ALT 113 H Alkaline Phosphatase 932 H Total Protein 6.3 L Albumin 2.2 L Vitamin B12 Serum Folate Urine Creatinine 1.68 Urine Copper 94 Ur Copper 24 Hr 71 H Ur Copper/Creat Ratio 56 H 04/01/19 04/01/19 06:44 06:44 WBC RBC Hgb Hct MCV MCH MCHC RDW Plt Count MPV Neutrophils % Neutrophils % (Manual) Band Neutrophils % Lymphocytes % Lymphocytes % (Manual) Monocytes % (Manual) Eosinophils % (Manual) Basophils % (Manual) Myelocytes % (Man) Promyelocytes % (Man) Blast Cells % (Manual) Nucleated RBC % Metamyelocytes Hypochromia Platelet Estimate Polychromasia Poikilocytosis Anisocytosis Microcytosis Macrocytosis Target Cells Stomatocytes PT with INR 15.90 H INR 1.34 H Sodium Potassium Chloride Carbon Dioxide Anion Gap BUN Creatinine Est GFR (CKD-EPI)AfAm Est GFR (CKD-EPI)NonAf Random Glucose Calcium Total Bilirubin Direct Bilirubin AST ALT Alkaline Phosphatase Total Protein Albumin Vitamin B12 349 Serum Folate 14 Urine Creatinine Urine Copper Ur Copper 24 Hr Ur Copper/Creat Ratio Active Medications Generic Name Dose Route Start Last Admin Trade Name Freq PRN Reason Stop Dose Admin Bupropion HCl 150 mg 03/25/19 10:00 03/31/19 09:32 Wellbutrin Xl - PO 150 mg DAILY LUCERO Administration Iron Sucrose 200 mg/ Sodium 100 mls @ 100 mls/hr 04/01/19 15:00 Chloride IVPB 04/01/19 15:59 ONCE ONE Polyethylene Glycol 17 gm 03/27/19 14:47 Miralax (For Daily Use) - PO DAILY PRN CONSTIPATION Sumatriptan Succinate 100 mg 03/25/19 01:06 03/26/19 10:06 Imitrex - PO 100 mg PRN PRN Administration HEADACHE Venlafaxine HCl 150 mg 03/25/19 10:00 03/31/19 09:55 Effexor Xr - PO 150 mg DAILY LUCERO Administration ASSESSMENT/PLAN: 49 y/o lady with h/o chronic iron def anemia, fibroids, no h/o transfusion, anxiety , depression, migraines, recent hospitalization to [facility] with a diagnosis of pyelonephritis and bacteremia. She presented with syncope #Syncope - likely due to orthostasis - resolved #Sepsis either 2/2 to urinary source or GI biliary source. - still believe due to bactrim use - Dr Joyce: believes it is from bactrim, less likely diann dx, 24hr urine copper high, urine copper nl, serum copper high. -In setting of continued LFT improvement would hold off on liver biopsy currently however if plateaus or worsens would consider at that time for more definitive diagnosis. - Celiac bx results pending, IgA high at 449, sm muscle 9 (nl). - Dr. Cornell recommends no abx, likely bactrim induced. - Heme- continuing IV venofir second dose 200mg given today. #Microcytic anemia: - chronic - Colonoscopy normal, no signs of cause of Fe deficiency (Isiah) will continue w/u for diann etc as o/p. - thallesemia r/o - LDH high haptoglobin nl - FOBT negative - transfuse if Hb < 7 Dr. Latham- thinks iron deficiency anemia and AOCD, flow cytometry pending to r/ o MDS, on IV venofir next dose will be in 2 days if pt still here. #Migraines. - resolved now - no signs of [employer] infection. #FEN no fluids indicated at this time monitor lytes,Hb regular diet DVT PPX: SCD's for now pending above w/u before starting any AC's. Visit type - Emergency Visit Emergency Visit: No - New Patient This patient is new to me today: No - Critical Care Critical Care patient: No - Discharge Referral Referred to [facility] Med P.C.: No ATTENDING PHYSICIAN STATEMENT I saw and evaluated the patient. I reviewed the resident's note and discussed the case with the resident. I agree with the resident's findings and plan as documented. SUBJECTIVE: OBJECTIVE: ASSESSMENT AND PLAN:
[2019-04-01] MEDS ORDERED: PT OWN MED DRAWER 7, Y5N ONE (15:23)
[2019-04-01] MEDS: VENLAFAXINE HCL 75 MG E.R. CAPSULES (FP) PO SCH (15:27)
--- NOTE | 2019-04-01 17:31 | PN ---
Teaching Attending Note Name of Resident: Rajesh Camacho ATTENDING PHYSICIAN STATEMENT I saw and evaluated the patient. I reviewed the resident's note and discussed the case with the resident. I agree with the resident's findings and plan as documented. SUBJECTIVE: Patient is comfortable with no acute distress. going for colonoscopy. OBJECTIVE: Vital Signs Temperature 97 F L 04/01/19 13:08 Pulse Rate 70 04/01/19 13:38 Respiratory Rate 18 04/01/19 13:38 Blood Pressure 122/71 04/01/19 13:38 O2 Sat by Pulse Oximetry (%) 100 04/01/19 13:38 GENERAL: The patient is awake, alert, and fully oriented, in no acute distress. HEAD: Normal with no signs of trauma. NECK: supple. LUNGS: Breath sounds equal, clear to auscultation bilaterally, no wheezes, no crackles, no accessory muscle use. HEART: Regular rate and rhythm, S1, S2 without murmur, rub or gallop. ABDOMEN: Soft, nontender, nondistended, no guarding, no rebound. EXTREMITIES: 2+ pulses, warm, well-perfused, no edema. PSYCH: Normal mood, normal affect. SKIN: Warm, dry, no rashes or lesions noted CBCD WBC 12.3 K/mm3 (4.0-10.0) H 04/01/19 06:44 RBC 3.69 M/mm3 (3.60-5.2) 04/01/19 06:44 Hgb 7.2 GM/dL (10.7-15.3) L 04/01/19 06:44 Hct 24.3 % (32.4-45.2) L 04/01/19 06:44 MCV 65.7 fl (80-96) L 04/01/19 06:44 MCHC 29.7 g/dl (32.0-36.0) L 04/01/19 06:44 RDW 28.0 % (11.6-15.6) H 04/01/19 06:44 Plt Count 639 K/MM3 (134-434) H 04/01/19 06:44 MPV 8.3 fl (7.5-11.1) 04/01/19 06:44 CMP Sodium 143 mmol/L (136-145) 04/01/19 06:44 Potassium 3.6 mmol/L (3.5-5.1) 04/01/19 06:44 Chloride 105 mmol/L (98-107) 04/01/19 06:44 Carbon Dioxide 29 mmol/L (21-32) 04/01/19 06:44 Anion Gap 9 MMOL/L (8-16) 04/01/19 06:44 BUN 5.3 mg/dL (7-18) L 04/01/19 06:44 Creatinine 0.6 mg/dL (0.55-1.3) 04/01/19 06:44 Random Glucose 93 mg/dL (74-106) 04/01/19 06:44 Calcium 9.1 mg/dL (8.5-10.1) 04/01/19 06:44 Total Bilirubin 3.4 mg/dL (0.2-1) H 04/01/19 06:44 AST 116 U/L (15-37) H 04/01/19 06:44 ALT 113 U/L (13-61) H 04/01/19 06:44 Alkaline Phosphatase 932 U/L (45-117) H 04/01/19 06:44 Total Protein 6.3 g/dl (6.4-8.2) L 04/01/19 06:44 Albumin 2.2 g/dl (3.4-5.0) L 04/01/19 06:44 CARDIAC ENZYMES Creatine Kinase 32 U/L (26-192) 03/25/19 19:20 Troponin I < 0.02 ng/ml (0.00-0.05) 03/25/19 19:20 Current Medications Generic Name Dose Route Start Last Admin Trade Name Chan PRN Reason Stop Dose Admin Bupropion HCl 150 mg 03/25/19 10:00 04/01/19 15:28 Wellbutrin Xl - PO 150 mg DAILY LUCERO Administration Polyethylene Glycol 17 gm 03/27/19 14:47 Miralax (For Daily Use) - PO DAILY PRN CONSTIPATION Sumatriptan Succinate 100 mg 03/25/19 01:06 03/26/19 10:06 Imitrex - PO 100 mg PRN PRN Administration HEADACHE Venlafaxine HCl 150 mg 03/25/19 10:00 04/01/19 15:27 Effexor Xr - PO 150 mg DAILY LUCERO Administration Home Medications Medication Instructions Recorded Bupropion HCl [Bupropion Xl] 150 mg PO DAILY 03/24/19 Sulfamethoxazole/Trimethoprim 1 tab PO BID 03/24/19 [Bactrim Ds -] Sumatriptan Succinate 100 mg PO PRN 03/24/19 Venlafaxine HCl ER [Effexor Xr -] 150 mg PO DAILY 03/24/19 ASSESSMENT AND PLAN: Patient is 49yo female with PMHx of chronic iron def anemia, fibroids, no h/o transfusion, anxiety , depression, migraines, recent hospitalization to [facility] with a diagnosis of pyelonephritis and bacteremia and was given Bactrim DS. She presented with syncope in ED. and was admitted for further care. # Symptomatic chronic microcytic anemia: patient is going for Colonoscopy to r/ o [facility] and for further assessment and management. is consulted, s/p IV Iron ,s/p 1 unit of RBC transfusion. # Drug induced liver injury/ drug induced hemolysis: due to Bactrim DS, improving , hem/onc on the case flow cytometry for MDS was send by # s/p Syncope: no further recurrence. # H/o pyelonephritis and E coli bacteremia : no signs of sepsis at this time. doing well off Abx , repeat Blood cx neg # Migraines. resolved DVT PX: SCds
--- NOTE | 2019-04-01 17:51 | PN ---
Progress Note (short form) - Note Progress Note: Serum copper high (not favoring diann's) 24 hr urine for copper elevated Order ceruloplasmin Problem List - Problems (1) Abnormal liver function tests Code(s): R94.5 - ABNORMAL RESULTS OF LIVER FUNCTION STUDIES (2) Anemia Code(s): D64.9 - ANEMIA, UNSPECIFIED Qualifiers: Anemia type: unspecified type Qualified Code(s): D64.9 - Anemia, unspecified
[2019-04-02] MEDS: VENLAFAXINE HCL 75 MG E.R. CAPSULES (FP) PO SCH (09:41)
[2019-04-02 11:12] LABS: BASO % 0.2 % (0-2.0); EOS % 1.1 % (0-4.5); HEMATOCRIT 26.9 % (32.4-45.2); HEMOGLOBIN 7.9 GM/dL (10.7-15.3); LYMPH % 58.6 % (8-40); MCHC 29.4 g/dl (32.0-36.0); MEAN CELL VOLUME 67.8 fl (80-96); MEAN PLT VOLUME 8.3 fl (7.5-11.1); MONO % 5.5 % (3.8-10.2); NEUT % 34.6 % (42.8-82.8); PLATELET COUNT 584 K/MM3 (134-434); RBC 3.98 M/mm3 (3.60-5.2); RDW 29.4 % (11.6-15.6)
[2019-04-02 11:28] LABS: MCH 19.9 pg (25.7-33.7)
[2019-04-02 11:30] LABS: ALBUMIN 2.3 g/dl (3.4-5.0); BILIRUBIN,TOTAL 2.9 mg/dL (0.2-1); BLOOD UREA NITROGEN 5.1 mg/dL (7-18); CALCIUM 8.8 mg/dL (8.5-10.1); CREATININE 0.6 mg/dL (0.55-1.3); POTASSIUM 3.6 mmol/L (3.5-5.1); TOT PROT 6.4 g/dl (6.4-8.2)
[2019-04-02 14:48] VITALS: BP 119/71; PULSE 74; TEMP 98.2
--- NOTE | 2019-04-02 15:05 | PN ---
Progress Note (short form) - Note Progress Note: Clinically improved and LFTs improving From GI standpoint, OK for discharge Heme follow-up. ? concomitant causes of anemia aside from iron deficiency Patient does not have PMD. Will need repeat LFTs this week. Spoke w/ Dr. Alcocer. Patient will be referred to [facility]. F/U in office with me in 2 weeks. Advised avoidance of tylenol as outpatient and that she d/w Dr. Walker prior tpo leaving re: alternate medication regimens and evaluation of her headaches Problem List - Problems (1) Abnormal liver function tests Code(s): R94.5 - ABNORMAL RESULTS OF LIVER FUNCTION STUDIES (2) Anemia Code(s): D64.9 - ANEMIA, UNSPECIFIED Qualifiers: Anemia type: unspecified type Qualified Code(s): D64.9 - Anemia, unspecified
[2019-04-02 15:21] LABS: ANISOCYTOSIS 2+; MACROCYTOSIS 1+; OVALOCYTE 1+; PLATELET ESTIMATE INCREASED; TARGET CELLS 1+; TEAR DROP CELLS 1+
--- NOTE | 2019-04-02 16:17 | DS ---
Physical Exam: SUBJECTIVE: Patient seen and examined Patient has no new complains, at bedside. OBJECTIVE: Vital Signs Temperature 98.2 F 04/02/19 14:46 Pulse Rate 74 04/02/19 14:46 Respiratory Rate 18 04/02/19 14:46 Blood Pressure 119/71 04/02/19 14:46 O2 Sat by Pulse Oximetry (%) 100 04/02/19 09:00 GENERAL: The patient is awake, alert, and fully oriented, in no acute distress. HEAD: Normal with no signs of trauma. EYES: PERRL, extraocular movements intact, sclera anicteric, conjunctiva clear. ENT: Ears normal, oropharynx clear without exudates, moist mucous membranes. NECK: Trachea midline, full range of motion, supple. LUNGS: Breath sounds equal, clear to auscultation bilaterally, no wheezes, no crackles, no accessory muscle use. HEART: Regular rate and rhythm, S1, S2 without murmur, rub or gallop. ABDOMEN: Soft, nontender, nondistended, normoactive bowel sounds, no guarding, no rebound, no hepatosplenomegaly, no masses. EXTREMITIES: 2+ pulses, warm, well-perfused, no edema. NEUROLOGICAL: Cranial nerves II through XII grossly intact. Normal speech, gait not observed. PSYCH: Normal mood, normal affect. SKIN: Warm, dry, normal turgor, no rashes or lesions noted. LABS CBCD WBC 9.0 K/mm3 (4.0-10.0) 04/02/19 10:48 RBC 3.98 M/mm3 (3.60-5.2) 04/02/19 10:48 Hgb 7.9 GM/dL (10.7-15.3) L 04/02/19 10:48 Hct 26.9 % (32.4-45.2) L 04/02/19 10:48 MCV 67.8 fl (80-96) L 04/02/19 10:48 MCHC 29.4 g/dl (32.0-36.0) L 04/02/19 10:48 RDW 29.4 % (11.6-15.6) H 04/02/19 10:48 Plt Count 584 K/MM3 (134-434) H 04/02/19 10:48 MPV 8.3 fl (7.5-11.1) 04/02/19 10:48 CMP Sodium 143 mmol/L (136-145) 04/02/19 10:48 Potassium 3.6 mmol/L (3.5-5.1) 04/02/19 10:48 Chloride 108 mmol/L (98-107) H 04/02/19 10:48 Carbon Dioxide 29 mmol/L (21-32) 04/02/19 10:48 Anion Gap 6 MMOL/L (8-16) L 04/02/19 10:48 BUN 5.1 mg/dL (7-18) L 04/02/19 10:48 Creatinine 0.6 mg/dL (0.55-1.3) 04/02/19 10:48 Random Glucose 129 mg/dL (74-106) H 04/02/19 10:48 Calcium 8.8 mg/dL (8.5-10.1) 04/02/19 10:48 Total Bilirubin 2.9 mg/dL (0.2-1) H 04/02/19 10:48 AST 113 U/L (15-37) H 04/02/19 10:48 ALT 104 U/L (13-61) H 04/02/19 10:48 Alkaline Phosphatase 885 U/L (45-117) H 04/02/19 10:48 Total Protein 6.4 g/dl (6.4-8.2) 04/02/19 10:48 Albumin 2.3 g/dl (3.4-5.0) L 04/02/19 10:48 CARDIAC ENZYMES Creatine Kinase 32 U/L (26-192) 03/25/19 19:20 Troponin I < 0.02 ng/ml (0.00-0.05) 03/25/19 19:20 Current Medications Generic Name Dose Route Start Last Admin Trade Name Freq PRN Reason Stop Dose Admin Bupropion HCl 150 mg 03/25/19 10:00 04/02/19 09:41 Wellbutrin Xl - PO 150 mg DAILY LUCERO Administration Polyethylene Glycol 17 gm 03/27/19 14:47 Miralax (For Daily Use) - PO DAILY PRN CONSTIPATION Sumatriptan Succinate 100 mg 03/25/19 01:06 03/26/19 10:06 Imitrex - PO 100 mg PRN PRN Administration HEADACHE Venlafaxine HCl 150 mg 03/25/19 10:00 04/02/19 09:41 Effexor Xr - PO 150 mg DAILY LUCERO Administration Home Medications Medication Instructions Recorded Bupropion HCl [Bupropion Xl] 150 mg PO DAILY 03/24/19 Sumatriptan Succinate 100 mg PO PRN 03/24/19 Venlafaxine HCl ER [Effexor Xr -] 150 mg PO DAILY 03/24/19 Polyethylene Glycol 3350 [Miralax 17 gm PO DAILY PRN bottle 04/02/19 119 gm Btl -] Microbiology 03/24/19 18:00 Blood - Peripheral Venous Blood Culture - Final NO GROWTH AFTER 5 DAYS INCUBATION 03/24/19 18:00 Blood - Peripheral Venous Blood Culture - Final NO GROWTH AFTER 5 DAYS INCUBATION 03/26/19 13:15 Urine - Urine Clean Catch Urine Culture - Final NO GROWTH OBTAINED 03/24/19 15:40 Urine - Urine Clean Catch Urine Culture - Final Contaminated: Please Repeat HOSPITAL COURSE: Date of Admission:03/24/19 Date of Discharge: 04/02/19 Patient is 49yo female with PMHx of chronic iron def anemia, fibroids, no h/o transfusion, anxiety , depression, migraines, recent hospitalization to [facility] with a diagnosis of pyelonephritis and bacteremia and was given Bactrim DS. She presented with syncope in ED. and was admitted for further care. # Symptomatic chronic microcytic anemia:improved s/p Colonoscopy and EGD in the hospital by Dr. Joyce , plasma and urine copper was found elevated , we send ceruplasmin level , got authrization from the pathology department, patient will follow with . s/p IV Iron ,s/p 1 unit of RBC transfusion. # Drug induced liver injury/ drug induced hemolysis: due to Bactrim DS, improving , hem/onc on the case, follow flow cytometry for MDS was send by follow with dr Latham within a week. # s/p Syncope: no further recurrence. # H/o pyelonephritis and E coli bacteremia : no signs of sepsis at this time. doing well off Abx , repeat Blood cx neg # Migraines. resolved will discharge patient home with follow visit with caterer helper and GI . and the associate field service engineer Minutes to complete discharge: 35 Discharge Summary Reason For Visit: ANEMIA,PYELONEPHRITIS Current Active Problems Abnormal liver function tests (Acute) Anemia (Acute) Pyelonephritis (Acute) Symptomatic anemia (Acute) Condition: Guarded - Instructions Diet, Activity, Other Instructions: DO NOT TAKE ANY TYLENOL SUPPLEMENTS SINCE YOUR LIVER ENZYMES ARE STILL ELEVATED , KEEP YOURSELF HYDRATED, DRINK ENOUGH DAILY WATER B/T 2-3 LITER OF FLUID/ WATER FOLLOW UP WITH OFFICE WITHIN 2 WEEKS FOLLOW UP WITH WITHIN A WEEK , HAVE YOUR LIVER ENZYMES LEVEL (CMP) CHECKED WITHIN A WEEK AND YOUR BLOOD COUNT TO BE CHECKED IN A WEEK. FOLLOW UP WITH FOR FURTHER HEMATOLOGICAL WORK UP ; YOUR COPPER IN URINE AND PLASMA ELEVATED. CERUPLASMINOGEN LEVEL IS ORDERED. NEED TO FOLLOW UP WITH THE CLINIC FOR FURTHER CARE. NEED TO SEE AN COMMERCIAL CONSTRUCTION ESTIMATOR TO HAVE YOUR EYES CHECKED FOR COPPER DEPOSITS. Referrals: [facility] [Provider Group] - 1 Week Gus Joyce DO [Staff Physician] - 2 Weeks Mamadou Latham MD [Staff Physician] - 1 Week Rajesh Camacho RES [Resident] - 1 Week Disposition: HOME - Home Medications Comprehensive Discharge Medication List: Ambulatory Orders Bupropion HCl [Bupropion Xl] 150 mg PO DAILY 03/24/19 Sumatriptan Succinate 100 mg PO PRN 03/24/19 Venlafaxine HCl ER [Effexor Xr -] 150 mg PO DAILY 03/24/19 Polyethylene Glycol 3350 [Miralax 119 gm Btl -] 17 gm PO DAILY PRN bottle 04/02 This patient is new to me today: No Emergency Visit: No Critical Care patient: No - Discharge Referral Referred to [facility] No
--- NOTE | 2019-04-05 14:31 | PATH ---
Surgical Pathology Report Patient Name: EDILBERTO CORCORAN Med. Rec. #: [id number] /Age/Gender: 1970 (Age: 49) / F Account: [id number] Location: [facility] MED/SURG Taken: 04/01/2019 Received: 04/04/2019 Reported: 04/05/2019 Physicians: Mamadou Latham M.D. Specimen(s) Received PERIPHERAL BLOOD Clinical History Anemia, r/o MDS Final Diagnosis COMPREHENS[facility] [place] ([id number]) shows the following: INTERPRETATION: No atypical flow cytometric findings seen. MYELODYSPLASIA FISH PANEL performed and interpreted at [place], [place] ([id number]) shows the following: INTERPRETATION: No evidence of deletion 5q or monosomy 5 is present. No evidence of deletion 7q or monosomy 7 is present. No evidence of trisomy 8 (+8) is present. No evidence of deletion 13q14 is present. No evidence of rearrangement of 11q23. No evidence of a deletion of the p53 (17p13) locus. No evidence of deletion 20q12 is present See [facility] reports ([id number] and [id number]) for additional details. Electronically Signed Deepa Burciaga M.D. Addendum Reported: 04/08/2019 Addendum Diagnosis CYTOGENETIC KARTYOTYPE ANALYSIS received from [employer] [place], [place] ([id number]) shows the following: TEST RESULTS: Tissue Culture Failure. DIAGNOSTIC INTERPRETATION: This unstimulated peripheral blood specimen did not produce any analyzable metaphase cells and, therefore, chromosome analysis is not possible. A bone marrow aspirate, when clinically appropriate, is recommended. See [facility] report for additional details.
== END 2019-04-02 17:26 | disposition home or self-care (01) ==
LOC: JER 14:35 → JERBED 20:13 → J7W 03-25 00:35
PROVIDERS: ADMIT Internal Medicine; ATTEND Internal Medicine
PROC: 30233N1 Transfusion of Nonautologous Red Blood Cells into Peripheral Vein, Percutaneous Approach (ICD-10-PCS; 2019-03-24)
PROC: 0DB68ZX Excision of Stomach, Via Natural or Artificial Opening Endoscopic, Diagnostic (ICD-10-PCS; 2019-03-28)
PROC: 0DB98ZX Excision of Duodenum, Via Natural or Artificial Opening Endoscopic, Diagnostic (ICD-10-PCS; principal; 2019-03-28 11:15)
PROC: 0DJD8ZZ Inspection of Lower Intestinal Tract, Via Natural or Artificial Opening Endoscopic (ICD-10-PCS; 2019-04-01)
DX: R94.5 Abnormal results of liver function studies (principal); D50.9 Iron deficiency anemia, unspecified; T36.8X5A Adverse effect of other systemic antibiotics, initial encounter; R55 Syncope and collapse; F32.9 Major depressive disorder, single episode, unspecified; F41.9 Anxiety disorder, unspecified; G43.909 Migraine, unspecified, not intractable, without status migrainosus; D72.829 Elevated white blood cell count, unspecified; R74.0 Nonspecific elevation of levels of transaminase and lactic acid dehydrogenase [LDH]; D64.9 Anemia, unspecified; I10 Essential (primary) hypertension; E66.9 Obesity, unspecified; Z68.41 Body mass index [BMI] 40.0-44.9, adult; K71.9 Toxic liver disease, unspecified; K44.9 Diaphragmatic hernia without obstruction or gangrene; K64.8 Other hemorrhoids
CPT/HCPCS: 36415; 36430; 70450-TC; 71045-TC-FY; 74178-TC; 74181-TC; 76705-TC; 76856-TC; 80048; 80053; 80076; 80307; 81003; 82248; 82272; 82525; 82550; 82570; 82607; 82728; 82746; 82747; 82784; 82977; 83010; 83021; 83516; 83540; 83550; 83615; 83690; 83735; 84439; 84443; 84484; 84703; 85014; 85025; 85027; 85044; 85610; 85660; 85730; 86038; 86704; 86706; 86707; 86708; 86709; 86850; 86900; 86901; 86922; 87040; 87086; 87340; 88300-TC; 88305-TC; 88342-TC; 90715; 93005; 93010; 93970-TC; 97116-GP; 97162-GP; 99285-25; J0131; J1756; J7030; P9038; P9058